=== PATIENT | male | born 1980 | race Caucasian/White ===

== ENCOUNTER 2022-02-11 23:56 | Inpatient (IN) | payer OTHER ==
[2022-02-12] MEDS ORDERED: Adacel Vial IM ONE ×2 (00:45→01:08)
[2022-02-12] MEDS ORDERED: VANCOMYCIN 1 GRAM/200 ML BAG 1 GM/200 ML PIGGYBACK IV ONE ×2 (00:46→02:18)
[2022-02-12] MEDS ORDERED: Sodium Chloride 0.9% 1000 ML 1,000 ML IV STA (00:47)
[2022-02-12] MEDS ORDERED: PIPERACILLIN/TAZOBACTAM 3.375 GM in Sodium Chloride 100ML MINI-BAG PLUS 100 ML IV ONE (00:47)
--- NOTE | 2022-02-12 00:54 | ERPHSYRPT ---
- History of Present Illness Time Seen by Provider: 02/12/22 00:49 Source: patient Physician History: Patient is a 41-year-old male presents to emergency department for evaluation of blisters to both feet. Patient is a type II diabetic. He has a history of a stroke. Patient states that he has been experiencing some sores in his feet. Patient's family members have been applying triamcinolone cream. Patient's feet shortly thereafter developed bilateral blisters. There is lymphangitis observed at the medial aspect of patient's right foot. There are open sores on the left foot. Patient's wounds have been progressive. No trauma. 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 Patient is prone to infections. Patient states his feet are insensate. Patient does not have a white lead grinder and does not follow white lead grinder regularly. at bedside. Patient has no systemic manifestations at this time. They deny fevers. They voiced no other complaints or concerns at this time. Portions of this note were created with voice recognition technology. There may be grammatical, spelling, punctuation or sound alike errors Timing/Duration: yesterday Severity: moderate Modifying Factors: Improves With: nothing Associated Symptoms: denies symptoms Allergies/Adverse Reactions: No Known Drug Allergies Allergy (Verified 02/12/22 00:36) - Review of Systems Constitutional: No Symptoms, No Fever, No Chills Eyes: No Symptoms Ears, Nose, & Throat: No Symptoms Respiratory: No Symptoms, No Cough, No Dyspnea Cardiac: No Symptoms, No Chest Pain, No Edema, No Syncope Abdominal/Gastrointestinal: No Symptoms, No Abdominal Pain, No Nausea, No Vomiting, No Diarrhea Genitourinary Symptoms: No Symptoms, No Dysuria Musculoskeletal: No Symptoms, No Back Pain, No Neck Pain Skin: No Symptoms, No Rash Neurological: No Symptoms, No Dizziness, No Focal Weakness, No Sensory Changes Psychological: No Symptoms Endocrine: No Symptoms Hematologic/Lymphatic: No Symptoms Immunological/Allergic: No Symptoms All Other Systems: Reviewed and Negative - Nursing Vital Signs Nursing Vital Signs: Initial Vital Signs Temperature 98.2 F 02/12/22 00:42 Pulse Rate 103 H 02/12/22 00:42 Respiratory Rate 18 02/12/22 00:42 Blood Pressure 163/101 02/12/22 00:42 O2 Sat by Pulse Oximetry 100 02/12/22 00:42 Pain Scale Pain Intensity 8 - Physical Exam General Appearance: no apparent distress, alert Eye Exam: PERRL/EOMI, eyes nml inspection Ears, Nose, Throat Exam: normal ENT inspection, TMs normal, pharynx normal, moist mucous membranes Neck Exam: normal inspection, non-tender, supple, full range of motion Respiratory Exam: normal breath sounds, lungs clear, airway intact, No respiratory distress Cardiovascular Exam: regular rate/rhythm, normal heart sounds, normal peripheral pulses Gastrointestinal/Abdomen Exam: soft, normal bowel sounds, No tenderness, No mass Back Exam: normal inspection, normal range of motion, No CVA tenderness, No vertebral tenderness Extremity Exam: normal inspection, normal range of motion, pelvis stable, swelling (Mild swelling both feet. Bilateral feet are neurovascular tact distally. Compartments are soft. Cap refill less than 2 seconds. No subc utaneous emphysema observed), other (Both feet present with multiple blisters and skin breakdown particularly in between the toes. The right foot presents with lymphangitis. There are open sores on the left foot.) Neurologic Exam: alert, oriented x 3, cooperative, normal mood/affect, nml cerebellar function, nml station & gait, sensation nml, No motor deficits Skin Exam: normal color, warm, dry, No rash Lymphatic Exam: No adenopathy SpO2 Interpretation: normal SpO2: 98 O2 Delivery: Room Air - Course Nursing assessment & vital signs reviewed: Yes Ordered Tests: Active Orders 24 hr Category Date Time Status IV Insertion STAT Care 02/12/22 00:47 Active Pulse Oximetry (ED) STAT Care 02/12/22 00:47 Active BLOOD CULTURE Stat Lab 02/12/22 01:05 Received CBC W DIFF Stat Lab 02/12/22 01:00 Completed CMP Stat Lab 02/12/22 01:00 Completed Lactic Acid Stat Lab 02/12/22 01:05 Completed PROCALCITONIN Stat Lab 02/12/22 01:00 Completed UA W/RFX CULTURE Stat Lab 02/12/22 Ordered Medication Summary Generic Name Dose Route Start Last Admin Trade Name Freq PRN Reason Stop Dose Admin Vancomycin HCl 1 gm in 200 mls @ 125 mls/hr 02/12/22 00:46 Vancomycin 1 Gram/200 Ml Bag IV 02/12/22 02:21 STAT ONE Discontinued Medications Generic Name Dose Route Start Last Admin Trade Name Freq PRN Reason Stop Dose Admin Diphtheria/Tetanus/Acell Pertussis 0.5 ml 02/12/22 00:45 02/12/22 01:18 Tdap --Diph,Pertuss(Acell),Tet Vac/Pf 0.5 Ml Vial IM 02/12/22 00:46 0.5 ml .ONCE ONE Administration Diphtheria/Tetanus/Acell Pertussis Confirm 02/12/22 01:08 Tdap --Diph,Pertuss(Acell),Tet Vac/Pf 0.5 Ml Vial Administered 02/12/22 01:09 Dose 0.5 ml IM .STK-MED ONE Piperacillin Sod/Tazobactam 100 mls @ 200 mls/hr 02/12/22 00:47 02/12/22 01:20 Sod 3.375 gm/ Sodium Chloride IV 02/12/22 01:16 200 mls/hr STAT ONE Administration Sodium Chloride 1,000 mls @ 999 mls/hr 02/12/22 00:47 02/12/22 01:19 Sodium Chloride 0.9% 1000 Ml IV 02/12/22 01:47 999 mls/hr .Q1H1M STA Administration Sodium Chloride Confirm 02/12/22 01:08 Sodium Chloride 0.9% 1000 Ml Administered 02/12/22 01:09 Dose 1,000 mls @ ud .ROUTE .STK-MED ONE Sodium Chloride Confirm 02/12/22 01:10 Sodium Chloride 100ml Mini-Bag Plus Administered 02/12/22 01:11 Dose 100 mls @ ud IV .STK-MED ONE Morphine Sulfate 4 mg 02/12/22 02:12 Morphine Sulfate 4 Mg/Ml Injection IV 02/12/22 02:13 STAT ONE Piperacillin Sod/Tazobactam Sod Confirm 02/12/22 01:08 Piperacillin/Tazobactam Sodium 3.375 Gm Vial Administered 02/12/22 01:09 Dose 3.375 gm IV .STK-MED ONE Lab/Rad Data: Laboratory Result Diagrams 02/12/22 01:00 02/12/22 01:00 Laboratory Results 02/12/22 02/12/22 02/12/22 Range/Units 01:08 01:05 01:00 WBC (4.0-10.5) x10^3/uL RBC (4.1-5.6) x10^6/uL Hgb (12.5-18.0) g/dL Hct (42-50) % MCV (78-100) fL MCH (26-32) pg MCHC (32-36) g/dL RDW (11.5-14.0) % Plt Count (150-450) x10^3/uL MPV (7.5-11.0) fL Gran % (36.0-66.0) % Immature Gran % (Auto) (0.00-0.4) % Nucleat RBC Rel Count (0.00-0.1) % Eos # (Auto) (0-0.5) x10^3/uL Immature Gran # (Auto) (0.00-0.03) x10^3u/L Absolute Lymphs (auto) (1.0-4.6) x10^3/uL Absolute Monos (auto) (0.0-1.3) x10^3/uL Absolute Nucleated RBC (0.00-0.01) x10^3u/L Lymphocytes % (24.0-44.0) % Monocytes % (0.0-12.0) % Eosinophils % (0.00-5.0) % Basophils % (0.0-0.4) % Absolute Granulocytes (1.4-6.9) x10^3/uL Basophils # (0-0.4) x10^3/uL Sodium (137-145) mmol/L Potassium (3.5-5.1) mmol/L Chloride (98-107) mmol/L Carbon Dioxide (22-30) mmol/L Anion Gap (5-15) MEQ/L BUN (9-20) mg/dL Creatinine (0.66-1.25) mg/dL Estimated GFR ML/MIN Glucose (74-106) mg/dL Lactic Acid 3.1 H (0.4-2.0) Calcium (8.4-10.2) mg/dL Total Bilirubin (0.2-1.3) mg/dL AST (17-59) U/L ALT (0-50) U/L Alkaline Phosphatase (38-126) U/L Serum Total Protein (6.3-8.2) g/dL Albumin (3.5-5.0) g/dL Procalcitonin 0.051 (0.030-0.080) ng/mL Influenza Type A Ag NEGATIVE (NEGATIVE) Influenza Type B Ag NEGATIVE (NEGATIVE) RSV (PCR) NEGATIVE (Negative) SARS-CoV-2 (PCR) NEGATIVE (NEGATIVE) 02/12/22 02/12/22 Range/Units 01:00 01:00 WBC 8.4 (4.0-10.5) x10^3/uL RBC 5.58 (4.1-5.6) x10^6/uL Hgb 16.1 (12.5-18.0) g/dL Hct 48.5 (42-50) % MCV 86.9 (78-100) fL MCH 28.9 (26-32) pg MCHC 33.2 (32-36) g/dL RDW 12.5 (11.5-14.0) % Plt Count 234 (150-450) x10^3/uL MPV 10.3 (7.5-11.0) fL Gran % 62.5 (36.0-66.0) % Immature Gran % (Auto) 0.4 (0.00-0.4) % Nucleat RBC Rel Count 0.0 (0.00-0.1) % Eos # (Auto) 0.08 (0-0.5) x10^3/uL Immature Gran # (Auto) 0.03 (0.00-0.03) x10^3u/L Absolute Lymphs (auto) 2.32 (1.0-4.6) x10^3/uL Absolute Monos (auto) 0.68 (0.0-1.3) x10^3/uL Absolute Nucleated RBC 0.00 (0.00-0.01) x10^3u/L Lymphocytes % 27.6 (24.0-44.0) % Monocytes % 8.1 (0.0-12.0) % Eosinophils % 1.0 (0.00-5.0) % Basophils % 0.4 (0.0-0.4) % Absolute Granulocytes 5.28 (1.4-6.9) x10^3/uL Basophils # 0.03 (0-0.4) x10^3/uL Sodium 138 (137-145) mmol/L Potassium 4.5 (3.5-5.1) mmol/L Chloride 102 (98-107) mmol/L Carbon Dioxide 24 (22-30) mmol/L Anion Gap 16.2 H (5-15) MEQ/L BUN 18 (9-20) mg/dL Creatinine 0.77 (0.66-1.25) mg/dL Estimated GFR > 60.0 ML/MIN Glucose 307 H (74-106) mg/dL Lactic Acid (0.4-2.0) Calcium 9.4 (8.4-10.2) mg/dL Total Bilirubin 0.80 (0.2-1.3) mg/dL AST 29 (17-59) U/L ALT 39 (0-50) U/L Alkaline Phosphatase 125 (38-126) U/L Serum Total Protein 8.1 (6.3-8.2) g/dL Albumin 4.7 (3.5-5.0) g/dL Procalcitonin (0.030-0.080) ng/mL Influenza Type A Ag (NEGATIVE) Influenza Type B Ag (NEGATIVE) RSV (PCR) (Negative) SARS-CoV-2 (PCR) (NEGATIVE) - Progress Progress: improved Progress Note: Patient reassessed. Patient received morphine for bilateral foot pain. Vanco and Zosyn infused for infection. Patient's tetanus needed updated. Adacel administered. IV fluids infused. Patient hyperglycemic with a slight elevated anion gap. Lactic acidosis of 3.1. We will have to trend his lactic acidosis. Patient will be admitted. He will likely be evaluated by her white lead grinder for further evaluation and possible debridement of patient's foot wounds. Plan of care discussed with patient. He agrees to admission [facility] for further evaluation and treatment. COVID-negative. Case discussed with Dr. Sidhu who accepts admission to observation. Portions of this note were created with voice recognition technology. There may be grammatical, spelling, punctuation or sound alike errors 02/12/22 02:17 Discussed with : John Will see patient in: hospital (observation) Counseled pt/family regarding: lab results, diagnosis, rad results - Departure Departure Disposition: Observation Clinical Impression: Cellulitis of foot, Lymphangitis, Lactic acidosis, Hyperglycemia Condition: Stable Critical Care Time: No Referrals: SUNITA PATTERSON [Primary Care Provider] - Follow up/PCP as directed
[2022-02-12] MEDS ORDERED: Sodium Chloride 0.9% 1000 ML 1,000 ML ONE (01:08)
[2022-02-12] MEDS ORDERED: PIPERACILLIN/TAZOBACTAM IV ONE ×2 (01:08→05:20)
[2022-02-12] MEDS ORDERED: Sodium Chloride 100ML MINI-BAG PLUS 100 ML IV ONE ×2 (01:10→05:20)
[2022-02-12 01:21] LABS: Absolute Neutrophil Ct (ANC) 5.28 x10^3/uL (1.4-6.9); Basophil (Absolute #) 0.03 x10^3/uL (0-0.4); Eosinophil (Absolute #) 0.08 x10^3/uL (0-0.5); Hematocrit 48.5 % (42-50); Hemoglobin 16.1 g/dL (12.5-18.0); Lymphocyte (Absolute #) 2.32 x10^3/uL (1.0-4.6); Lymphocytes % 27.6 % (24.0-44.0); Mean Cell Volume 86.9 fL (78-100); Mean Corpuscular Hemoglobin 28.9 pg (26-32); Mean Corpuscular Hgb Concent. 33.2 g/dL (32-36); Mean Platelet Volume 10.3 fL (7.5-11.0); Monocyte (Absolute #) 0.68 x10^3/uL (0.0-1.3); Monocytes % 8.1 % (0.0-12.0); Neutrophil % 62.5 % (36.0-66.0); Platelet Count 234 x10^3/uL (150-450); Red Blood Count 5.58 x10^6/uL (4.1-5.6); Red Cell Distribution Width 12.5 % (11.5-14.0); White Blood Count 8.4 x10^3/uL (4.0-10.5)
[2022-02-12 01:26] LABS: ALBUMIN 4.7 g/dL (3.5-5.0); ALKALINE PHOSPHATASE 125 U/L (38-126); ANION GAP 16.2 MEQ/L (5-15); BLOOD UREA NITROGEN 18 mg/dL (9-20); CHLORIDE 102 mmol/L (98-107); Calcium 9.4 mg/dL (8.4-10.2); Carbon Dioxide 24 mmol/L (22-30); Creatinine 1 0.77 mg/dL (0.66-1.25); EST GLOMERULAR FILTRATION RATE > 60.0 ML/MIN; Glucose 307 mg/dL (74-106); Potassium 4.5 mmol/L (3.5-5.1); SGOT/AST 29 U/L (17-59); SGPT/ALT 39 U/L (0-50); SODIUM 138 mmol/L (137-145); Total Protein 8.1 g/dL (6.3-8.2)
[2022-02-12 01:47] LABS: INFLUENZA A NEGATIVE (NEGATIVE); INFLUENZA B NEGATIVE (NEGATIVE); RESPIRATORY SYNCTIAL VIRUS NEGATIVE (Negative); SARS-CoV-2 Xpert Express NEGATIVE (NEGATIVE)
[2022-02-12] MEDS ORDERED: MORPHINE SULFATE 4 MG INJ IV ONE (02:12)
[2022-02-12] MEDS ORDERED: MORPHINE SULFATE 4 MG INJ ONE (02:18)
[2022-02-12] MEDS ORDERED: TYLENOL 325 MG PO PRN (03:15)
[2022-02-12] MEDS ORDERED: VANCOMYCIN 1 GRAM/200 ML BAG 1 GM/200 ML PIGGYBACK IV SCH (03:15)
[2022-02-12 03:57] LABS: Absolute Neutrophil Ct (ANC) 5.22 x10^3/uL (1.4-6.9); Basophil (Absolute #) 0.02 x10^3/uL (0-0.4); Eosinophil (Absolute #) 0.08 x10^3/uL (0-0.5); Hematocrit 44.7 % (42-50); Hemoglobin 14.7 g/dL (12.5-18.0); Lymphocyte (Absolute #) 2.34 x10^3/uL (1.0-4.6); Lymphocytes % 28.5 % (24.0-44.0); Mean Cell Volume 87.1 fL (78-100); Mean Corpuscular Hemoglobin 28.7 pg (26-32); Mean Corpuscular Hgb Concent. 32.9 g/dL (32-36); Mean Platelet Volume 10.2 fL (7.5-11.0); Monocyte (Absolute #) 0.52 x10^3/uL (0.0-1.3); Monocytes % 6.3 % (0.0-12.0); Neutrophil % 63.6 % (36.0-66.0); Platelet Count 215 x10^3/uL (150-450); Red Blood Count 5.13 x10^6/uL (4.1-5.6); Red Cell Distribution Width 12.7 % (11.5-14.0); White Blood Count 8.2 x10^3/uL (4.0-10.5)
[2022-02-12 04:10] LABS: Appearance CLEAR (CLEAR); Bacteria RARE /HPF (NEGATIVE); Glucose >=1000 mg/dL (NEGATIVE)
[2022-02-12 04:11] LABS: Bilirubin NEGATIVE (NEGATIVE); Dipstick done @ ? MAIN LAB; Ketones TRACE (NEGATIVE); Nitrite NEGATIVE (NEGATIVE); Protein,Urine Dip NEGATIVE (Negative); RBC NEGATIVE Ery/ul (0-5); Urine Cultured Indicated? NO; Urobilinogen 0.2 mg/dL (0-1)
[2022-02-12 04:14] LABS: ALBUMIN 4.1 g/dL (3.5-5.0); ALKALINE PHOSPHATASE 108 U/L (38-126); ANION GAP 14.1 MEQ/L (5-15); BLOOD UREA NITROGEN 18 mg/dL (9-20); CHLORIDE 104 mmol/L (98-107); Calcium 8.7 mg/dL (8.4-10.2); Carbon Dioxide 24 mmol/L (22-30); Creatinine 1 0.82 mg/dL (0.66-1.25); EST GLOMERULAR FILTRATION RATE > 60.0 ML/MIN; Glucose 289 mg/dL (74-106); Potassium 4.3 mmol/L (3.5-5.1); SGOT/AST 28 U/L (17-59); SGPT/ALT 35 U/L (0-50); SODIUM 138 mmol/L (137-145); Total Protein 7.2 g/dL (6.3-8.2)
[2022-02-12] MEDS: PIPERACILLIN/TAZOBACTAM 3.375 GM in Sodium Chloride 100ML MINI-BAG PLUS 100 ML IV SCH ×4 (05:52→23:16)
[2022-02-12] MEDS: MORPHINE SULFATE 4 MG INJ IV PRN ×2 (06:35→12:35)
--- NOTE | 2022-02-12 11:25 | XRAY ---
Exam: Duplex Doppler Ultrasound of the bilateral lower extremities. Comparison: [None.] Indication: 41-year-old male with bilateral cellulitis. Findings: The examination of the right and left lower extremity was carried out in the usual manner imaging equal opportunity representative sections of the common femoral vein through the popliteal vein. The posterior tibial veins were also evaluated. Normal color blood flow was seen throughout. Normal spontaneous and phasic flow was seen at all equal opportunity representative deep vein segments. There was normal transducer compression and doppler signal augmentation at all levels. The greater saphenous vein demonstrated color blood flow, Doppler signal, and compressibility within the proximal right and left thighs. Impression: 1. No evidence of deep venous thrombosis within the right or left lower extremity. No evidence of superficial venous thrombosis was seen as well.
[2022-02-12] MEDS: VANCOMYCIN 1.5 GRAM/300 ML BAG 1.5 GM/300 ML PIGGYBACK IV SCH ×2 (12:39→20:45)
--- NOTE | 2022-02-12 12:44 | PCM.HP ---
History of Present Illness - Chief Complaint Chief Complaint: Diabetic, foot cellulitis, lymphangitis History of Present Illness: is a 41 year old male pt of Dr. Chandra with DM II, peripheral neuropathy, and hx [place] and CVA who was admitted through ER with diabetic foot wounds. He started noticing sharp pains in the feet and blistering 2 days ago. No trauma. The blisters escalated quickly. Otherwise, he felt fine, no fever, no vomiting. He has been receiving morphine 4mg IV q 4h. Is tolerating po fine. Feeling overall well today, aside from fatigue and pain in the feet. - Review of Systems Constitutional: Fatigue Abdominal/Gastrointestinal: Abdominal Pain (had cramps this a.m. but they resolved.) Skin: Cellulitis, Skin Lesions Psychological: No Suicidal Ideations All Other Systems: Reviewed and Negative Medications & Allergies Allergies/Adverse Reactions: Allergies Allergy/AdvReac Type Severity Reaction Status Date / Time No Known Drug Allergies Allergy Verified 02/12/22 03:20 - Past Medical History Past Medical History: Yes Neurological History: Stroke ENT History: No Pertinent History Cardiac History: High Cholesterol, Hypertension, Myocardial Infarction ([place]) Respiratory History: No Pertinent History Endocrine Medical History: Diabetes Type II Musculoskelatal History: No Pertinent History GI Medical History: No Pertinent History History: No Pertinent History Pyscho-Social History: No Pertinent History Male Reproductive Disorders: No Pertinent History - Past Surgical History Past Surgical History: Yes Neuro Surgical History: No Pertinent History Cardiac History: No Pertinent History Respiratory Surgery: No Pertinent History GI Surgical History: No Pertinent History Genitourinary Surgical Hx: No Pertinent History Musculskeletal Surgical Hx: No Pertinent History Male Surgical History: Testicular Surgery Other Surgical History: hernia x2 - Social History Smoking Status: Former smoker Exposure to second hand smoke: Yes Alcohol: None Drug Use: none - Physical Exam Vital Signs: Vital Signs - 24 hr Temp Pulse Resp BP Pulse Ox 02/12/22 11:38 97.3 F 88 16 144/80 96 02/12/22 07:31 97.8 F 78 18 137/83 96 02/12/22 03:26 97.5 F 83 20 166/92 100 02/12/22 02:50 86 18 120/84 98 02/12/22 02:19 98 02/12/22 01:29 98 02/12/22 01:27 102 H 18 143/105 99 02/12/22 00:42 98.2 F 103 H 18 163/101 100 General Appearance: no apparent distress, alert, obese Neurologic Exam: oriented x 3, cooperative Eye Exam: eyes nml inspection Ears, Nose, Throat Exam: moist mucous membranes Neck Exam: normal inspection Respiratory Exam: normal breath sounds, lungs clear, No crackles/rales, No rhonchi, No wheezing Cardiovascular Exam: regular rate/rhythm, normal heart sounds, No murmur Gastrointestinal/Abdomen Exam: soft, normal bowel sounds, No tenderness, No distention, No mass, No guarding, No rebound Extremity Exam: other (distal feet bilat have been washed with iodine. The toes are edematous, L>R, with some purple discoloration. Pedal pulses +, L>R. Evidence of deflated vesicles present L>R.) Results - Labs Lab/Micro Results: Lab Results-Last 24 Hours 02/12/22 02/12/22 02/12/22 Range/Units 01:00 01:00 01:00 WBC 8.4 (4.0-10.5) x10^3/uL RBC 5.58 (4.1-5.6) x10^6/uL Hgb 16.1 (12.5-18.0) g/dL Hct 48.5 (42-50) % MCV 86.9 (78-100) fL MCH 28.9 (26-32) pg MCHC 33.2 (32-36) g/dL RDW 12.5 (11.5-14.0) % Plt Count 234 (150-450) x10^3/uL MPV 10.3 (7.5-11.0) fL Gran % 62.5 (36.0-66.0) % Immature Gran % (Auto) 0.4 (0.00-0.4) % Nucleat RBC Rel Count 0.0 (0.00-0.1) % Eos # (Auto) 0.08 (0-0.5) x10^3/uL Immature Gran # (Auto) 0.03 (0.00-0.03) x10^3u/L Absolute Lymphs (auto) 2.32 (1.0-4.6) x10^3/uL Absolute Monos (auto) 0.68 (0.0-1.3) x10^3/uL Absolute Nucleated RBC 0.00 (0.00-0.01) x10^3u/L Lymphocytes % 27.6 (24.0-44.0) % Monocytes % 8.1 (0.0-12.0) % Eosinophils % 1.0 (0.00-5.0) % Basophils % 0.4 (0.0-0.4) % Absolute Granulocytes 5.28 (1.4-6.9) x10^3/uL Basophils # 0.03 (0-0.4) x10^3/uL Sodium 138 (137-145) mmol/L Potassium 4.5 (3.5-5.1) mmol/L Chloride 102 (98-107) mmol/L Carbon Dioxide 24 (22-30) mmol/L Anion Gap 16.2 H (5-15) MEQ/L BUN 18 (9-20) mg/dL Creatinine 0.77 (0.66-1.25) mg/dL Estimated GFR > 60.0 ML/MIN Glucose 307 H (74-106) mg/dL POC Glucometer (74 to 106) mg/dL Lactic Acid (0.4-2.0) Calcium 9.4 (8.4-10.2) mg/dL Total Bilirubin 0.80 (0.2-1.3) mg/dL AST 29 (17-59) U/L ALT 39 (0-50) U/L Alkaline Phosphatase 125 (38-126) U/L Serum Total Protein 8.1 (6.3-8.2) g/dL Albumin 4.7 (3.5-5.0) g/dL Procalcitonin 0.051 (0.030-0.080) ng/mL Urinalys Dipstick Clnc Urine Color (YELLOW) Urine Appearance (CLEAR) Urine pH (5-6) Ur Specific Clayton (1.005-1.025) POC Urine Protein Conf (Negative) Urine Ketones (NEGATIVE) Urine Nitrite (NEGATIVE) Urine Bilirubin (NEGATIVE) Urine Urobilinogen (0-1) mg/dL Urine Leukocytes (NEGATIVE) Urine WBC (Auto) (0-5) /HPF Urine RBC (Auto) (0-2) /HPF U Epithel Cells (Auto) (FEW) /HPF Urine Bacteria (Auto) (NEGATIVE) /HPF Urine RBC (0-5) Nick/ul Ur Culture Indicated? Urine Glucose (NEGATIVE) mg/dL Influenza Type A Ag (NEGATIVE) Influenza Type B Ag (NEGATIVE) RSV (PCR) (Negative) SARS-CoV-2 (PCR) (NEGATIVE) 02/12/22 02/12/22 02/12/22 Range/Units 01:05 01:08 03:14 WBC (4.0-10.5) x10^3/uL RBC (4.1-5.6) x10^6/uL Hgb (12.5-18.0) g/dL Hct (42-50) % MCV (78-100) fL MCH (26-32) pg MCHC (32-36) g/dL RDW (11.5-14.0) % Plt Count (150-450) x10^3/uL MPV (7.5-11.0) fL Gran % (36.0-66.0) % Immature Gran % (Auto) (0.00-0.4) % Nucleat RBC Rel Count (0.00-0.1) % Eos # (Auto) (0-0.5) x10^3/uL Immature Gran # (Auto) (0.00-0.03) x10^3u/L Absolute Lymphs (auto) (1.0-4.6) x10^3/uL Absolute Monos (auto) (0.0-1.3) x10^3/uL Absolute Nucleated RBC (0.00-0.01) x10^3u/L Lymphocytes % (24.0-44.0) % Monocytes % (0.0-12.0) % Eosinophils % (0.00-5.0) % Basophils % (0.0-0.4) % Absolute Granulocytes (1.4-6.9) x10^3/uL Basophils # (0-0.4) x10^3/uL Sodium (137-145) mmol/L Potassium (3.5-5.1) mmol/L Chloride (98-107) mmol/L Carbon Dioxide (22-30) mmol/L Anion Gap (5-15) MEQ/L BUN (9-20) mg/dL Creatinine (0.66-1.25) mg/dL Estimated GFR ML/MIN Glucose (74-106) mg/dL POC Glucometer (74 to 106) mg/dL Lactic Acid 3.1 H 2.7 H (0.4-2.0) Calcium (8.4-10.2) mg/dL Total Bilirubin (0.2-1.3) mg/dL AST (17-59) U/L ALT (0-50) U/L Alkaline Phosphatase (38-126) U/L Serum Total Protein (6.3-8.2) g/dL Albumin (3.5-5.0) g/dL Procalcitonin (0.030-0.080) ng/mL Urinalys Dipstick Clnc Urine Color (YELLOW) Urine Appearance (CLEAR) Urine pH (5-6) Ur Specific [place] (1.005-1.025) POC Urine Protein Conf (Negative) Urine Ketones (NEGATIVE) Urine Nitrite (NEGATIVE) Urine Bilirubin (NEGATIVE) Urine Urobilinogen (0-1) mg/dL Urine Leukocytes (NEGATIVE) Urine WBC (Auto) (0-5) /HPF Urine RBC (Auto) (0-2) /HPF U Epithel Cells (Auto) (FEW) /HPF Urine Bacteria (Auto) (NEGATIVE) /HPF Urine RBC (0-5) Nick/ul Ur Culture Indicated? Urine Glucose (NEGATIVE) mg/dL Influenza Type A Ag NEGATIVE (NEGATIVE) Influenza Type B Ag NEGATIVE (NEGATIVE) RSV (PCR) NEGATIVE (Negative) SARS-CoV-2 (PCR) NEGATIVE (NEGATIVE) 02/12/22 02/12/22 02/12/22 Range/Units 03:53 03:53 03:59 WBC 8.2 (4.0-10.5) x10^3/uL RBC 5.13 (4.1-5.6) x10^6/uL Hgb 14.7 (12.5-18.0) g/dL Hct 44.7 (42-50) % MCV 87.1 (78-100) fL MCH 28.7 (26-32) pg MCHC 32.9 (32-36) g/dL RDW 12.7 (11.5-14.0) % Plt Count 215 (150-450) x10^3/uL MPV 10.2 (7.5-11.0) fL Gran % 63.6 (36.0-66.0) % Immature Gran % (Auto) 0.4 (0.00-0.4) % Nucleat RBC Rel Count 0.0 (0.00-0.1) % Eos # (Auto) 0.08 (0-0.5) x10^3/uL Immature Gran # (Auto) 0.03 (0.00-0.03) x10^3u/L Absolute Lymphs (auto) 2.34 (1.0-4.6) x10^3/uL Absolute Monos (auto) 0.52 (0.0-1.3) x10^3/uL Absolute Nucleated RBC 0.00 (0.00-0.01) x10^3u/L Lymphocytes % 28.5 (24.0-44.0) % Monocytes % 6.3 (0.0-12.0) % Eosinophils % 1.0 (0.00-5.0) % Basophils % 0.2 (0.0-0.4) % Absolute Granulocytes 5.22 (1.4-6.9) x10^3/uL Basophils # 0.02 (0-0.4) x10^3/uL Sodium 138 (137-145) mmol/L Potassium 4.3 (3.5-5.1) mmol/L Chloride 104 (98-107) mmol/L Carbon Dioxide 24 (22-30) mmol/L Anion Gap 14.1 (5-15) MEQ/L BUN 18 (9-20) mg/dL Creatinine 0.82 (0.66-1.25) mg/dL Estimated GFR > 60.0 ML/MIN Glucose 289 H (74-106) mg/dL POC Glucometer 255 H (74 to 106) mg/dL Lactic Acid (0.4-2.0) Calcium 8.7 (8.4-10.2) mg/dL Total Bilirubin 0.70 (0.2-1.3) mg/dL AST 28 (17-59) U/L ALT 35 (0-50) U/L Alkaline Phosphatase 108 (38-126) U/L Serum Total Protein 7.2 (6.3-8.2) g/dL Albumin 4.1 (3.5-5.0) g/dL Procalcitonin (0.030-0.080) ng/mL Urinalys Dipstick Clnc Urine Color (YELLOW) Urine Appearance (CLEAR) Urine pH (5-6) Ur Specific [place] (1.005-1.025) POC Urine Protein Conf (Negative) Urine Ketones (NEGATIVE) Urine Nitrite (NEGATIVE) Urine Bilirubin (NEGATIVE) Urine Urobilinogen (0-1) mg/dL Urine Leukocytes (NEGATIVE) Urine WBC (Auto) (0-5) /HPF Urine RBC (Auto) (0-2) /HPF U Epithel Cells (Auto) (FEW) /HPF Urine Bacteria (Auto) (NEGATIVE) /HPF Urine RBC (0-5) Nick/ul Ur Culture Indicated? Urine Glucose (NEGATIVE) mg/dL Influenza Type A Ag (NEGATIVE) Influenza Type B Ag (NEGATIVE) RSV (PCR) (Negative) SARS-CoV-2 (PCR) (NEGATIVE) 02/12/22 02/12/22 02/12/22 Range/Units 07:15 10:59 Unknown WBC (4.0-10.5) x10^3/uL RBC (4.1-5.6) x10^6/uL Hgb (12.5-18.0) g/dL Hct (42-50) % MCV (78-100) fL MCH (26-32) pg MCHC (32-36) g/dL RDW (11.5-14.0) % Plt Count (150-450) x10^3/uL MPV (7.5-11.0) fL Gran % (36.0-66.0) % Immature Gran % (Auto) (0.00-0.4) % Nucleat RBC Rel Count (0.00-0.1) % Eos # (Auto) (0-0.5) x10^3/uL Immature Gran # (Auto) (0.00-0.03) x10^3u/L Absolute Lymphs (auto) (1.0-4.6) x10^3/uL Absolute Monos (auto) (0.0-1.3) x10^3/uL Absolute Nucleated RBC (0.00-0.01) x10^3u/L Lymphocytes % (24.0-44.0) % Monocytes % (0.0-12.0) % Eosinophils % (0.00-5.0) % Basophils % (0.0-0.4) % Absolute Granulocytes (1.4-6.9) x10^3/uL Basophils # (0-0.4) x10^3/uL Sodium (137-145) mmol/L Potassium (3.5-5.1) mmol/L Chloride (98-107) mmol/L Carbon Dioxide (22-30) mmol/L Anion Gap (5-15) MEQ/L BUN (9-20) mg/dL Creatinine (0.66-1.25) mg/dL Estimated GFR ML/MIN Glucose (74-106) mg/dL POC Glucometer 218 H 310 H (74 to 106) mg/dL Lactic Acid (0.4-2.0) Calcium (8.4-10.2) mg/dL Total Bilirubin (0.2-1.3) mg/dL AST (17-59) U/L ALT (0-50) U/L Alkaline Phosphatase (38-126) U/L Serum Total Protein (6.3-8.2) g/dL Albumin (3.5-5.0) g/dL Procalcitonin (0.030-0.080) ng/mL Urinalys Dipstick Clnc MAIN LAB Urine Color YELLOW (YELLOW) Urine Appearance CLEAR (CLEAR) Urine pH 5.0 (5-6) Ur Specific [place] 1.020 (1.005-1.025) POC Urine Protein Conf NEGATIVE (Negative) Urine Ketones TRACE A (NEGATIVE) Urine Nitrite NEGATIVE (NEGATIVE) Urine Bilirubin NEGATIVE (NEGATIVE) Urine Urobilinogen 0.2 (0-1) mg/dL Urine Leukocytes NEGATIVE (NEGATIVE) Urine WBC (Auto) NONE (0-5) /HPF Urine RBC (Auto) NONE (0-2) /HPF U Epithel Cells (Auto) NONE (FEW) /HPF Urine Bacteria (Auto) RARE (NEGATIVE) /HPF Urine RBC NEGATIVE (0-5) Nick/ul Ur Culture Indicated? NO Urine Glucose >=1000 A (NEGATIVE) mg/dL Influenza Type A Ag (NEGATIVE) Influenza Type B Ag (NEGATIVE) RSV (PCR) (Negative) SARS-CoV-2 (PCR) (NEGATIVE) Accuchecks Date 02/12/22 Date 02/12/22 Time 11:38 Time 07:31 - Radiology Impressions Radiology Exams & Impressions: Radiology Procedures Category Date Time Status VENOUS BILATERAL EXTREMITY [US] Routine Exams 02/12/22 09:00 Completed Assessment/Plan (1) Cellulitis of foot Current Visit: Yes Status: Acute Assessment & Plan: Dr. Cook saw pt and deflated vesicles, sounds like he took cultures as well, thank you. Pt is on zosyn currently. Will add percocet po in addition to morphine. Code(s): L03.119 - CELLULITIS OF UNSPECIFIED PART OF LIMB (2) Diabetes mellitus type II, uncontrolled Current Visit: Yes Status: Chronic Qualifiers: Glycemic state: with hyperglycemia Qualified Code(s): E11.65 - Type 2 diabetes mellitus with hyperglycemia Code(s): [id number] - (3) Peripheral neuropathy Current Visit: Yes Status: Chronic Qualifiers: Peripheral neuropathy type: polyneuropathy associated with underlying disease Qualified Code(s): G63 - Polyneuropathy in diseases classified elsewhere Code(s): G62.9 - POLYNEUROPATHY, UNSPECIFIED
[2022-02-12] MEDS: OXYCODONE-ACETAMINOPHEN 10-325 PO PRN ×2 (13:05→17:41)
--- NOTE | 2022-02-12 16:41 | PCM.CONS ---
Podiatry HPI - Consult Date of Consultation Date: 02/12/22 Reason for Consult: Bullous epidermal lysis, multiple diabetic foot ulcers Consulting Provider: SHMUEL BEDOLLA DPM - [facility] History of Present Illness: Davidson is a very pleasant 41-year-old male who is seen at bedside today for bullous blisters to the bilateral lower extremity as well as ulcerations to the left foot over digits 3 4 and 5. Patient indicates that he does not know how this occurred. He has been a diabetic since he has been 23 years old type II and uncontrolled. He indicates he does have a significant amount of neuropathy that causes his feet to be cold so he constantly wears socks at all times. He currently denies any constitutional symptoms of infection. He denies any other pedal complaints at this time Medications & Allergies Home Medications: Home Medication List No Reportable Medications [No Reported Medications] 02/12/22 [History Confirmed 02/12/22] Allergies/Adverse Reactions: Allergies Allergy/AdvReac Type Severity Reaction Status Date / Time No Known Drug Allergies Allergy Verified 02/12/22 03:20 - Past Medical History Past Medical History: Yes Neurological History: Stroke ENT History: No Pertinent History Cardiac History: High Cholesterol, Hypertension, Myocardial Infarction (SD) Respiratory History: No Pertinent History Endocrine Medical History: Diabetes Type II Musculoskelatal History: No Pertinent History GI Medical History: No Pertinent History History: No Pertinent History Pyscho-Social History: No Pertinent History Male Reproductive Disorders: No Pertinent History - Past Surgical History Past Surgical History: Yes Neuro Surgical History: No Pertinent History Cardiac History: No Pertinent History Respiratory Surgery: No Pertinent History GI Surgical History: No Pertinent History Genitourinary Surgical Hx: No Pertinent History Musculskeletal Surgical Hx: No Pertinent History Male Surgical History: Testicular Surgery Other Surgical History: hernia x2 - Social History Smoking Status: Former smoker Exposure to second hand smoke: Yes Alcohol: None Drug Use: none Physical Exam - General General Appearance: no apparent distress - Neuro Neurologic: Epicritic and protopathic (absent) - Vascular Peripheral Pulses: Posterior tibialis: 2+, Dorsalis-Pedis: 2+ Capillary Refill Time: < 3 seconds Hair Growth: Symmetrical and Bilateral Varicosities: Positive Edema: Pitting Edema Degree: 2+ Skin: Supple, not atrophic Skin Temperature: Warm to touch - Muscular Muscle Strength: 5/5 on all 4 quadrants Digital Deformity: no digital deformities - Narrative Narrative Physical Exam: Podiatry Physical Exam Multiple bullous blisters to the bilateral lower extremity hemorrhagic to the left third digit otherwise serous in nature. Streaking to the inner aspect of the right posterior tibial tendon sheath with erythema correlating with bullous blisters in this area. 3 ulcerations noted over the third fourth and fifth digits of the left foot. See images. Nontender. Fibrotic and granulation tissue mixture. No obvious indications of infection other than cellulitis and streaking Results - Labs Lab/Micro Results: Lab Results-Last 24 Hours 02/12/22 02/12/22 02/12/22 Range/Units 01:00 01:00 01:00 WBC 8.4 (4.0-10.5) x10^3/uL RBC 5.58 (4.1-5.6) x10^6/uL Hgb 16.1 (12.5-18.0) g/dL Hct 48.5 (42-50) % MCV 86.9 (78-100) fL MCH 28.9 (26-32) pg MCHC 33.2 (32-36) g/dL RDW 12.5 (11.5-14.0) % Plt Count 234 (150-450) x10^3/uL MPV 10.3 (7.5-11.0) fL Gran % 62.5 (36.0-66.0) % Immature Gran % (Auto) 0.4 (0.00-0.4) % Nucleat RBC Rel Count 0.0 (0.00-0.1) % Eos # (Auto) 0.08 (0-0.5) x10^3/uL Immature Gran # (Auto) 0.03 (0.00-0.03) x10^3u/L Absolute Lymphs (auto) 2.32 (1.0-4.6) x10^3/uL Absolute Monos (auto) 0.68 (0.0-1.3) x10^3/uL Absolute Nucleated RBC 0.00 (0.00-0.01) x10^3u/L Lymphocytes % 27.6 (24.0-44.0) % Monocytes % 8.1 (0.0-12.0) % Eosinophils % 1.0 (0.00-5.0) % Basophils % 0.4 (0.0-0.4) % Absolute Granulocytes 5.28 (1.4-6.9) x10^3/uL Basophils # 0.03 (0-0.4) x10^3/uL Sodium 138 (137-145) mmol/L Potassium 4.5 (3.5-5.1) mmol/L Chloride 102 (98-107) mmol/L Carbon Dioxide 24 (22-30) mmol/L Anion Gap 16.2 H (5-15) MEQ/L BUN 18 (9-20) mg/dL Creatinine 0.77 (0.66-1.25) mg/dL Estimated GFR > 60.0 ML/MIN Glucose 307 H (74-106) mg/dL POC Glucometer (74 to 106) mg/dL Lactic Acid (0.4-2.0) Calcium 9.4 (8.4-10.2) mg/dL Total Bilirubin 0.80 (0.2-1.3) mg/dL AST 29 (17-59) U/L ALT 39 (0-50) U/L Alkaline Phosphatase 125 (38-126) U/L Serum Total Protein 8.1 (6.3-8.2) g/dL Albumin 4.7 (3.5-5.0) g/dL Procalcitonin 0.051 (0.030-0.080) ng/mL Urinalys Dipstick Clnc Urine Color (YELLOW) Urine Appearance (CLEAR) Urine pH (5-6) Ur Specific Monroe (1.005-1.025) POC Urine Protein Conf (Negative) Urine Ketones (NEGATIVE) Urine Nitrite (NEGATIVE) Urine Bilirubin (NEGATIVE) Urine Urobilinogen (0-1) mg/dL Urine Leukocytes (NEGATIVE) Urine WBC (Auto) (0-5) /HPF Urine RBC (Auto) (0-2) /HPF U Epithel Cells (Auto) (FEW) /HPF Urine Bacteria (Auto) (NEGATIVE) /HPF Urine RBC (0-5) Nick/ul Ur Culture Indicated? Urine Glucose (NEGATIVE) mg/dL Influenza Type A Ag (NEGATIVE) Influenza Type B Ag (NEGATIVE) RSV (PCR) (Negative) SARS-CoV-2 (PCR) (NEGATIVE) 02/12/22 02/12/22 02/12/22 Range/Units 01:05 01:08 03:14 WBC (4.0-10.5) x10^3/uL RBC (4.1-5.6) x10^6/uL Hgb (12.5-18.0) g/dL Hct (42-50) % MCV (78-100) fL MCH (26-32) pg MCHC (32-36) g/dL RDW (11.5-14.0) % Plt Count (150-450) x10^3/uL MPV (7.5-11.0) fL Gran % (36.0-66.0) % Immature Gran % (Auto) (0.00-0.4) % Nucleat RBC Rel Count (0.00-0.1) % Eos # (Auto) (0-0.5) x10^3/uL Immature Gran # (Auto) (0.00-0.03) x10^3u/L Absolute Lymphs (auto) (1.0-4.6) x10^3/uL Absolute Monos (auto) (0.0-1.3) x10^3/uL Absolute Nucleated RBC (0.00-0.01) x10^3u/L Lymphocytes % (24.0-44.0) % Monocytes % (0.0-12.0) % Eosinophils % (0.00-5.0) % Basophils % (0.0-0.4) % Absolute Granulocytes (1.4-6.9) x10^3/uL Basophils # (0-0.4) x10^3/uL Sodium (137-145) mmol/L Potassium (3.5-5.1) mmol/L Chloride (98-107) mmol/L Carbon Dioxide (22-30) mmol/L Anion Gap (5-15) MEQ/L BUN (9-20) mg/dL Creatinine (0.66-1.25) mg/dL Estimated GFR ML/MIN Glucose (74-106) mg/dL POC Glucometer (74 to 106) mg/dL Lactic Acid 3.1 H 2.7 H (0.4-2.0) Calcium (8.4-10.2) mg/dL Total Bilirubin (0.2-1.3) mg/dL AST (17-59) U/L ALT (0-50) U/L Alkaline Phosphatase (38-126) U/L Serum Total Protein (6.3-8.2) g/dL Albumin (3.5-5.0) g/dL Procalcitonin (0.030-0.080) ng/mL Urinalys Dipstick Clnc Urine Color (YELLOW) Urine Appearance (CLEAR) Urine pH (5-6) Ur Specific Monroe (1.005-1.025) POC Urine Protein Conf (Negative) Urine Ketones (NEGATIVE) Urine Nitrite (NEGATIVE) Urine Bilirubin (NEGATIVE) Urine Urobilinogen (0-1) mg/dL Urine Leukocytes (NEGATIVE) Urine WBC (Auto) (0-5) /HPF Urine RBC (Auto) (0-2) /HPF U Epithel Cells (Auto) (FEW) /HPF Urine Bacteria (Auto) (NEGATIVE) /HPF Urine RBC (0-5) Nick/ul Ur Culture Indicated? Urine Glucose (NEGATIVE) mg/dL Influenza Type A Ag NEGATIVE (NEGATIVE) Influenza Type B Ag NEGATIVE (NEGATIVE) RSV (PCR) NEGATIVE (Negative) SARS-CoV-2 (PCR) NEGATIVE (NEGATIVE) 02/12/22 02/12/22 02/12/22 Range/Units 03:53 03:53 03:59 WBC 8.2 (4.0-10.5) x10^3/uL RBC 5.13 (4.1-5.6) x10^6/uL Hgb 14.7 (12.5-18.0) g/dL Hct 44.7 (42-50) % MCV 87.1 (78-100) fL MCH 28.7 (26-32) pg MCHC 32.9 (32-36) g/dL RDW 12.7 (11.5-14.0) % Plt Count 215 (150-450) x10^3/uL MPV 10.2 (7.5-11.0) fL Gran % 63.6 (36.0-66.0) % Immature Gran % (Auto) 0.4 (0.00-0.4) % Nucleat RBC Rel Count 0.0 (0.00-0.1) % Eos # (Auto) 0.08 (0-0.5) x10^3/uL Immature Gran # (Auto) 0.03 (0.00-0.03) x10^3u/L Absolute Lymphs (auto) 2.34 (1.0-4.6) x10^3/uL Absolute Monos (auto) 0.52 (0.0-1.3) x10^3/uL Absolute Nucleated RBC 0.00 (0.00-0.01) x10^3u/L Lymphocytes % 28.5 (24.0-44.0) % Monocytes % 6.3 (0.0-12.0) % Eosinophils % 1.0 (0.00-5.0) % Basophils % 0.2 (0.0-0.4) % Absolute Granulocytes 5.22 (1.4-6.9) x10^3/uL Basophils # 0.02 (0-0.4) x10^3/uL Sodium 138 (137-145) mmol/L Potassium 4.3 (3.5-5.1) mmol/L Chloride 104 (98-107) mmol/L Carbon Dioxide 24 (22-30) mmol/L Anion Gap 14.1 (5-15) MEQ/L BUN 18 (9-20) mg/dL Creatinine 0.82 (0.66-1.25) mg/dL Estimated GFR > 60.0 ML/MIN Glucose 289 H (74-106) mg/dL POC Glucometer 255 H (74 to 106) mg/dL Lactic Acid (0.4-2.0) Calcium 8.7 (8.4-10.2) mg/dL Total Bilirubin 0.70 (0.2-1.3) mg/dL AST 28 (17-59) U/L ALT 35 (0-50) U/L Alkaline Phosphatase 108 (38-126) U/L Serum Total Protein 7.2 (6.3-8.2) g/dL Albumin 4.1 (3.5-5.0) g/dL Procalcitonin (0.030-0.080) ng/mL Urinalys Dipstick Clnc Urine Color (YELLOW) Urine Appearance (CLEAR) Urine pH (5-6) Ur Specific Monroe (1.005-1.025) POC Urine Protein Conf (Negative) Urine Ketones (NEGATIVE) Urine Nitrite (NEGATIVE) Urine Bilirubin (NEGATIVE) Urine Urobilinogen (0-1) mg/dL Urine Leukocytes (NEGATIVE) Urine WBC (Auto) (0-5) /HPF Urine RBC (Auto) (0-2) /HPF U Epithel Cells (Auto) (FEW) /HPF Urine Bacteria (Auto) (NEGATIVE) /HPF Urine RBC (0-5) Nick/ul Ur Culture Indicated? Urine Glucose (NEGATIVE) mg/dL Influenza Type A Ag (NEGATIVE) Influenza Type B Ag (NEGATIVE) RSV (PCR) (Negative) SARS-CoV-2 (PCR) (NEGATIVE) 02/12/22 02/12/22 02/12/22 Range/Units 07:15 10:59 16:22 WBC (4.0-10.5) x10^3/uL RBC (4.1-5.6) x10^6/uL Hgb (12.5-18.0) g/dL Hct (42-50) % MCV (78-100) fL MCH (26-32) pg MCHC (32-36) g/dL RDW (11.5-14.0) % Plt Count (150-450) x10^3/uL MPV (7.5-11.0) fL Gran % (36.0-66.0) % Immature Gran % (Auto) (0.00-0.4) % Nucleat RBC Rel Count (0.00-0.1) % Eos # (Auto) (0-0.5) x10^3/uL Immature Gran # (Auto) (0.00-0.03) x10^3u/L Absolute Lymphs (auto) (1.0-4.6) x10^3/uL Absolute Monos (auto) (0.0-1.3) x10^3/uL Absolute Nucleated RBC (0.00-0.01) x10^3u/L Lymphocytes % (24.0-44.0) % Monocytes % (0.0-12.0) % Eosinophils % (0.00-5.0) % Basophils % (0.0-0.4) % Absolute Granulocytes (1.4-6.9) x10^3/uL Basophils # (0-0.4) x10^3/uL Sodium (137-145) mmol/L Potassium (3.5-5.1) mmol/L Chloride (98-107) mmol/L Carbon Dioxide (22-30) mmol/L Anion Gap (5-15) MEQ/L BUN (9-20) mg/dL Creatinine (0.66-1.25) mg/dL Estimated GFR ML/MIN Glucose (74-106) mg/dL POC Glucometer 218 H 310 H 235 H (74 to 106) mg/dL Lactic Acid (0.4-2.0) Calcium (8.4-10.2) mg/dL Total Bilirubin (0.2-1.3) mg/dL AST (17-59) U/L ALT (0-50) U/L Alkaline Phosphatase (38-126) U/L Serum Total Protein (6.3-8.2) g/dL Albumin (3.5-5.0) g/dL Procalcitonin (0.030-0.080) ng/mL Urinalys Dipstick Clnc Urine Color (YELLOW) Urine Appearance (CLEAR) Urine pH (5-6) Ur Specific Monroe (1.005-1.025) POC Urine Protein Conf (Negative) Urine Ketones (NEGATIVE) Urine Nitrite (NEGATIVE) Urine Bilirubin (NEGATIVE) Urine Urobilinogen (0-1) mg/dL Urine Leukocytes (NEGATIVE) Urine WBC (Auto) (0-5) /HPF Urine RBC (Auto) (0-2) /HPF U Epithel Cells (Auto) (FEW) /HPF Urine Bacteria (Auto) (NEGATIVE) /HPF Urine RBC (0-5) Nick/ul Ur Culture Indicated? Urine Glucose (NEGATIVE) mg/dL Influenza Type A Ag (NEGATIVE) Influenza Type B Ag (NEGATIVE) RSV (PCR) (Negative) SARS-CoV-2 (PCR) (NEGATIVE) 02/12/22 Range/Units Unknown WBC (4.0-10.5) x10^3/uL RBC (4.1-5.6) x10^6/uL Hgb (12.5-18.0) g/dL Hct (42-50) % MCV (78-100) fL MCH (26-32) pg MCHC (32-36) g/dL RDW (11.5-14.0) % Plt Count (150-450) x10^3/uL MPV (7.5-11.0) fL Gran % (36.0-66.0) % Immature Gran % (Auto) (0.00-0.4) % Nucleat RBC Rel Count (0.00-0.1) % Eos # (Auto) (0-0.5) x10^3/uL Immature Gran # (Auto) (0.00-0.03) x10^3u/L Absolute Lymphs (auto) (1.0-4.6) x10^3/uL Absolute Monos (auto) (0.0-1.3) x10^3/uL Absolute Nucleated RBC (0.00-0.01) x10^3u/L Lymphocytes % (24.0-44.0) % Monocytes % (0.0-12.0) % Eosinophils % (0.00-5.0) % Basophils % (0.0-0.4) % Absolute Granulocytes (1.4-6.9) x10^3/uL Basophils # (0-0.4) x10^3/uL Sodium (137-145) mmol/L Potassium (3.5-5.1) mmol/L Chloride (98-107) mmol/L Carbon Dioxide (22-30) mmol/L Anion Gap (5-15) MEQ/L BUN (9-20) mg/dL Creatinine (0.66-1.25) mg/dL Estimated GFR ML/MIN Glucose (74-106) mg/dL POC Glucometer (74 to 106) mg/dL Lactic Acid (0.4-2.0) Calcium (8.4-10.2) mg/dL Total Bilirubin (0.2-1.3) mg/dL AST (17-59) U/L ALT (0-50) U/L Alkaline Phosphatase (38-126) U/L Serum Total Protein (6.3-8.2) g/dL Albumin (3.5-5.0) g/dL Procalcitonin (0.030-0.080) ng/mL Urinalys Dipstick Clnc MAIN LAB Urine Color YELLOW (YELLOW) Urine Appearance CLEAR (CLEAR) Urine pH 5.0 (5-6) Ur Specific Monroe 1.020 (1.005-1.025) POC Urine Protein Conf NEGATIVE (Negative) Urine Ketones TRACE A (NEGATIVE) Urine Nitrite NEGATIVE (NEGATIVE) Urine Bilirubin NEGATIVE (NEGATIVE) Urine Urobilinogen 0.2 (0-1) mg/dL Urine Leukocytes NEGATIVE (NEGATIVE) Urine WBC (Auto) NONE (0-5) /HPF Urine RBC (Auto) NONE (0-2) /HPF U Epithel Cells (Auto) NONE (FEW) /HPF Urine Bacteria (Auto) RARE (NEGATIVE) /HPF Urine RBC NEGATIVE (0-5) Nick/ul Ur Culture Indicated? NO Urine Glucose >=1000 A (NEGATIVE) mg/dL Influenza Type A Ag (NEGATIVE) Influenza Type B Ag (NEGATIVE) RSV (PCR) (Negative) SARS-CoV-2 (PCR) (NEGATIVE) Accuchecks Date 02/12/22 Date 02/12/22 Date 02/12/22 Time 11:38 Time 07:31 - Radiology Impressions Radiology Exams & Impressions: Radiology Procedures Category Date Time Status VENOUS BILATERAL EXTREMITY [US] Routine Exams 02/12/22 09:00 Completed Assessment/Plan (1) Epidermolysis bullosa Current Visit: Yes Status: Acute Assessment & Plan: Initial patient examination and evaluation. Patient does have a positive history for a DVT to the left lower extremity repeated tests today demonstrating negative for DVT to the bilateral lower extremity. Cultures of ulcers taken today Bullous blistering popped in the cases of serous fluid however not deroofed iodine painted and bilateral Unna boots applied with iodine paint Continue antibiotics as prescribed until culture and sensitivity has been returned Will monitor closely differential at this time is epidermolysis bullosa or secondary to neuropathy. Highly suspect for streptococcal infection will monitor for this with the culture and sensitivity Will follow closely Code(s): Q81.9 - EPIDERMOLYSIS BULLOSA, UNSPECIFIED (2) Venous insufficiency of both lower extremities Current Visit: Yes Status: Acute Code(s): I87.2 - VENOUS INSUFFICIENCY (CHRONIC) (PERIPHERAL) (3) Localized edema Current Visit: Yes Status: Acute Code(s): R60.0 - LOCALIZED EDEMA (4) Cellulitis of foot Current Visit: Yes Status: Acute Code(s): L03.119 - CELLULITIS OF UNSPECIFIED PART OF LIMB (5) Lymphangitis Current Visit: Yes Status: Acute Code(s): I89.1 - LYMPHANGITIS (6) Lactic acidosis Current Visit: Yes Status: Acute Code(s): E87.20 - ACIDOSIS, UNSPECIFIED (7) Hyperglycemia Current Visit: Yes Status: Acute Code(s): R73.9 - HYPERGLYCEMIA, UNSPECIFIED (8) Diabetes mellitus type II, uncontrolled Current Visit: Yes Status: Chronic Qualifiers: Glycemic state: with hyperglycemia Qualified Code(s): E11.65 - Type 2 diabetes mellitus with hyperglycemia Code(s): KRY7160 - (9) Peripheral neuropathy Current Visit: Yes Status: Chronic Qualifiers: Peripheral neuropathy type: polyneuropathy associated with underlying disease Qualified Code(s): G63 - Polyneuropathy in diseases classified elsewhere Code(s): G62.9 - POLYNEUROPATHY, UNSPECIFIED
[2022-02-12] MEDS: HUMALOG SQ PRN (20:45)
[2022-02-13] MEDS: PIPERACILLIN/TAZOBACTAM 3.375 GM in Sodium Chloride 100ML MINI-BAG PLUS 100 ML IV SCH ×4 (05:45→23:31)
[2022-02-13] MEDS: VANCOMYCIN 1.5 GRAM/300 ML BAG 1.5 GM/300 ML PIGGYBACK IV SCH ×3 (06:11→21:45)
[2022-02-13] MEDS ORDERED: TORAdol 30 mg Injection IV PRN (08:58)
[2022-02-13 09:03] LABS: ANION GAP 12.2 MEQ/L (5-15); BLOOD UREA NITROGEN 14 mg/dL (9-20); CHLORIDE 105 mmol/L (98-107); Calcium 8.9 mg/dL (8.4-10.2); Carbon Dioxide 25 mmol/L (22-30); Creatinine 1 0.99 mg/dL (0.66-1.25); EST GLOMERULAR FILTRATION RATE > 60.0 ML/MIN; Glucose 199 mg/dL (74-106); Potassium 4.4 mmol/L (3.5-5.1); SODIUM 137 mmol/L (137-145)
--- NOTE | 2022-02-13 09:21 | PCM.NOTE ---
Date and Time: 02/13/22917 Subjective Assessment: Doing well, kiet po. Pain is 4/10 currently. He does apparently have a hx of methamphetamine addiction so is trying to avoid pain meds. - Review of Systems Constitutional: No Fever Skin: Cellulitis Objective Exam General Appearance: no apparent distress, alert Neurologic Exam: oriented x 3, cooperative Skin Exam: warm, dry, other (legs/feet are wrapped bilat), No rash Wound Assessment: Skin/Wound Assessment Wound/Incision Assessment Start: 02/13/22 09:06 Text: Status: Active Freq: Protocol: Document 02/13/22 08:00 CHANEL (Rec: 02/13/22 09:09 CHANEL [id number]) Wound/Incision Assessment Lower Wound Assessment Shift Assessment Wound Type CELLULITIS Wound Stage Non Pressure Wound Dressing Status Dry & Intact Drainage Amount None Comment DRESSINGS CLEAN, DRY AND INTACT Eye Exam: eyes nml inspection Ears, Nose, Throat Exam: moist mucous membranes Neck Exam: normal inspection Respiratory Exam: normal breath sounds, lungs clear, No crackles/rales, No rhonchi, No wheezing Cardiovascular Exam: regular rate/rhythm, normal heart sounds, No murmur Gastrointestinal/Abdomen Exam: soft, normal bowel sounds, No tenderness, No distention, No mass, No guarding, No rebound Back Exam: normal inspection, No rash OBJECTIVE DATA Vital Signs: Vital Signs - 24 hr Temp Pulse Resp BP Pulse Ox 02/13/22 07:06 98.0 F 86 16 157/89 96 02/13/22 03:54 97.1 F 63 18 156/88 99 02/12/22 23:48 97.5 F 64 17 123/73 97 02/12/22 20:00 97.5 F 83 19 133/83 98 02/12/22 16:00 97.3 F 80 18 135/77 98 02/12/22 11:38 97.3 F 88 16 144/80 96 Pain Assessment - Last Documented Pain Intensity 4 Pain Scale Used 0-10 Pain Scale Intake and Output: Intake & Output 02/10/22 02/11/22 02/12/22 02/13/22 11:59 11:59 11:59 11:59 Intake Total 240 960 Output Total 800 Balance 240 160 Weight 103.2 kg Lab Results: Lab Results-Last 24 Hours 02/12/22 02/12/2222 Range/Units 10:59 16:22 20:29 Sodium (137-145) mmol/L Potassium (3.5-5.1) mmol/L Chloride (98-107) mmol/L Carbon Dioxide (22-30) mmol/L Anion Gap (5-15) MEQ/L BUN (9-20) mg/dL Creatinine (0.66-1.25) mg/dL Estimated GFR ML/MIN Glucose (74-106) mg/dL POC Glucometer 310 H 235 H 239 H (74 to 106) mg/dL Calcium (8.4-10.2) mg/dL 02/13/22 02/13/22 Range/Units 06:53 07:14 Sodium 137 (137-145) mmol/L Potassium 4.4 (3.5-5.1) mmol/L Chloride 105 (98-107) mmol/L Carbon Dioxide 25 (22-30) mmol/L Anion Gap 12.2 (5-15) MEQ/L BUN 14 (9-20) mg/dL Creatinine 0.99 (0.66-1.25) mg/dL Estimated GFR > 60.0 ML/MIN Glucose 199 H (74-106) mg/dL POC Glucometer 181 H (74 to 106) mg/dL Calcium 8.9 (8.4-10.2) mg/dL Radiology Exams: Radiology Procedures Category Date Time Status VENOUS BILATERAL EXTREMITY [US] Routine Exams 02/12/22 09:00 Completed Assessment/Plan (1) Cellulitis of foot Current Visit: Yes Status: Acute Assessment & Plan: wrapped today; managing per Dr. Cook, thank you. On vanc/zosyn pending culture results. Code(s): L03.119 - CELLULITIS OF UNSPECIFIED PART OF LIMB (2) Diabetes mellitus type II, uncontrolled Current Visit: Yes Status: Chronic Qualifiers: Glycemic state: with hyperglycemia Qualified Code(s): E11.65 - Type 2 diabetes mellitus with hyperglycemia Code(s): [id number] - (3) Peripheral neuropathy Current Visit: Yes Status: Chronic Qualifiers: Peripheral neuropathy type: polyneuropathy associated with underlying disease Qualified Code(s): G63 - Polyneuropathy in diseases classified elsewhere Code(s): G62.9 - POLYNEUROPATHY, UNSPECIFIED
[2022-02-13] MEDS: HUMALOG SQ PRN ×3 (11:57→21:45)
[2022-02-13] MEDS ORDERED: TROUGH DRUG LEVELS IJ ONE (13:30)
[2022-02-13] MEDS: MORPHINE SULFATE 4 MG INJ IV PRN (16:01)
--- NOTE | 2022-02-13 16:05 | XRAY ---
Exam: AP upright portable chest film from 02/13/2022. Comparison: [None.] Indication: 41-year-old male patient for PICC line placement. Findings: A right-sided PICC line is seen pointing inferiorly with the tip at or just above the right atrium at the lower T7 level. This appears in satisfactory position. There is no pneumothorax. The film was obtained in lordotic projection. The transverse heart size is normal. The krunal and mediastinal structures appear unremarkable. The lungs are well inflated and appear clear. Pulmonary vascularity is within normal limits. There is no pneumothorax or pleural fluid. No acute osseous process is seen. Impression: 1. Right-sided PICC line appears in good position with the tip pointing inferiorly at the lower T7 level at or just above the right atrium. 2. No acute cardiopulmonary disease is seen.
[2022-02-13] MEDS ORDERED: PHARMACY DOSING REQUEST MC ONE (16:47)
[2022-02-13] MEDS: OXYCODONE-ACETAMINOPHEN 10-325 PO PRN (21:48)
[2022-02-14] MEDS: OXYCODONE-ACETAMINOPHEN 10-325 PO PRN ×4 (02:21→21:29)
[2022-02-14] MEDS: PIPERACILLIN/TAZOBACTAM 3.375 GM in Sodium Chloride 100ML MINI-BAG PLUS 100 ML IV SCH ×4 (06:25→21:28)
[2022-02-14] MEDS: HUMALOG SQ PRN ×3 (08:02→21:29)
--- NOTE | 2022-02-14 08:22 | PCM.NOTE ---
Date and Time: 02/14/22818 Subjective Assessment: wound culture is still pending, wraps in place to feet. will be seen by podiatry today. patient plans to go home to his sister's and has PICC line for IV abx. there was an incident with his yesterday and he had her escorted away and police had to retrieve his phone from her. Objective Exam General Appearance: no apparent distress Neurologic Exam: alert, oriented x 3 Wound Assessment: Skin/Wound Assessment Wound/Incision Assessment Start: 02/13/22 09:06 Text: Status: Active Freq: Protocol: Document 02/13/22 08:00 CHANEL (Rec: 02/13/22 09:09 CHANEL [id number]) Wound/Incision Assessment Lower Wound Assessment Shift Assessment Wound Type CELLULITIS Wound Stage Non Pressure Wound Dressing Status Dry & Intact Drainage Amount None Comment DRESSINGS CLEAN, DRY AND INTACT Respiratory Exam: normal breath sounds, lungs clear, No respiratory distress Cardiovascular Exam: regular rate/rhythm Gastrointestinal/Abdomen Exam: soft, No tenderness, No mass Extremity Exam: other (knot on left upper arm, no redness or warmth) OBJECTIVE DATA Vital Signs: Vital Signs - 24 hr Temp Pulse Resp BP Pulse Ox 02/14/22 07:46 97.8 F 71 17 142/86 97 02/14/22 03:57 97.5 F 91 H 18 140/85 96 02/14/22 00:00 97.7 F 86 20 159/94 96 02/13/22 20:00 97.7 F 92 H 18 180/95 100 02/13/22 16:00 97.6 F 98 H 16 182/104 98 02/13/22 11:37 98.0 F 82 16 110/57 95 Pain Assessment - Last Documented Pain Intensity 0 Pain Scale Used 0-10 Pain Scale Intake and Output: Intake & Output 02/11/22 02/12/22 02/13/22 02/14/22 11:59 11:59 11:59 11:59 Intake Total 240 1540 2120 Output Total 800 Balance 611 035 2989 Weight 103.2 kg Lab Results: Lab Results-Last 24 Hours 02/13/22 02/13/22 02/13/22 Range/Units 07:14 07:20 11:29 Sodium 137 (137-145) mmol/L Potassium 4.4 (3.5-5.1) mmol/L Chloride 105 (98-107) mmol/L Carbon Dioxide 25 (22-30) mmol/L Anion Gap 12.2 (5-15) MEQ/L BUN 14 (9-20) mg/dL Creatinine 0.99 (0.66-1.25) mg/dL Estimated GFR > 60.0 ML/MIN Glucose 199 H (74-106) mg/dL POC Glucometer 202 H (74 to 106) mg/dL Lactic Acid 1.6 (0.4-2.0) Calcium 8.9 (8.4-10.2) mg/dL Vancomycin Trough (10-20) ug/mL 02/13/22 02/13/22 02/13/22 Range/Units 14:00 16:41 20:12 Sodium (137-145) mmol/L Potassium (3.5-5.1) mmol/L Chloride (98-107) mmol/L Carbon Dioxide (22-30) mmol/L Anion Gap (5-15) MEQ/L BUN (9-20) mg/dL Creatinine (0.66-1.25) mg/dL Estimated GFR ML/MIN Glucose (74-106) mg/dL POC Glucometer 225 H 285 H (74 to 106) mg/dL Lactic Acid (0.4-2.0) Calcium (8.4-10.2) mg/dL Vancomycin Trough 19.75 (10-20) ug/mL 02/14/22 Range/Units 07:38 Sodium (137-145) mmol/L Potassium (3.5-5.1) mmol/L Chloride (98-107) mmol/L Carbon Dioxide (22-30) mmol/L Anion Gap (5-15) MEQ/L BUN (9-20) mg/dL Creatinine (0.66-1.25) mg/dL Estimated GFR ML/MIN Glucose (74-106) mg/dL POC Glucometer 217 H (74 to 106) mg/dL Lactic Acid (0.4-2.0) Calcium (8.4-10.2) mg/dL Vancomycin Trough (10-20) ug/mL Radiology Exams: Radiology Procedures Category Date Time Status CHEST 1 VIEW (PORTABLE) Stat Exams 02/13/22 14:40 Completed VENOUS BILATERAL EXTREMITY [US] Routine Exams 02/12/22 09:00 Completed Multi-Disciplinary Progress Notes: Multi-Disciplinary Progress Notes 02/13/22 11:01 Case Management Note by Silke Cornejo REVIEWED CHART- NO CHANGE IN DC PLANS AT THIS TIME Initialized on 02/13/22 11:01 - END OF NOTE Assessment/Plan (1) Cellulitis of foot Current Visit: Yes Status: Acute Assessment & Plan: on vanc/zosyn, gram negative ID pending from culture Code(s): L03.119 - CELLULITIS OF UNSPECIFIED PART OF LIMB (2) Diabetes mellitus type II, uncontrolled Current Visit: Yes Status: Chronic Qualifiers: Glycemic state: with hyperglycemia Qualified Code(s): E11.65 - Type 2 diabetes mellitus with hyperglycemia Code(s): QWD4184 - (3) Postimmunization reaction Current Visit: Yes Status: Acute Assessment & Plan: advised ice to localized reaction/knot. no allergy Code(s): T88.1XXA - OTH COMPLICATIONS FOLLOWING IMMUNIZATION, NEC, INIT
[2022-02-14] MEDS: VANCOMYCIN 1.5 GRAM/300 ML BAG 1.5 GM/300 ML PIGGYBACK IV SCH ×3 (10:59→22:21)
--- NOTE | 2022-02-14 12:06 | XRAY ---
Exam: AP upright portable chest film from 02/14/2022. Comparison: AP upright portable chest film from 02/13/2022. Indication: 41-year-old male for PICC line placement. Findings: Right-sided PICC line is seen in place with the tip pointing inferiorly at or just beyond the caval-atrial junction. The transverse heart size is normal. The krunal and mediastinal structures appear unremarkable. The inferior margin of the right lateral lung sulcus has been barely cut off from the bottom edge of the film. A tiny transverse strand within the peripheral right midlung may relate to plate atelectasis or minimal pleural reaction within the minor fissure. In retrospect, this is unchanged. The remainder the lung rosario appears clear. Pulmonary vascularity is normal. No pneumothorax or pleural effusion is seen. No acute osseous process is seen. Impression: 1. Right-sided PICC line with tip pointing inferiorly at or immediately inferior to the caval-atrial junction. No pneumothorax is seen. 2. No other acute cardiopulmonary disease is seen.
[2022-02-14] MEDS: Zestril 20 MG PO SCH (13:45)
[2022-02-14] MEDS: NORVASC 5 MG PO SCH (13:45)
[2022-02-14] MEDS: Toprol Xl 50 MG PO SCH (13:45)
[2022-02-14] MEDS: ZOCOR 20MG PO SCH (13:46)
[2022-02-14] MEDS: CHLORTHALIDONE PO SCH (13:46)
[2022-02-14] MEDS: Neurontin PO SCH (13:46)
[2022-02-14] MEDS: Cathflo Activase 2 MG IV ONE ×2 (13:47→14:09)
[2022-02-14] MEDS: NEURONTIN PO SCH (21:29)
[2022-02-15] MEDS: PIPERACILLIN/TAZOBACTAM 3.375 GM in Sodium Chloride 100ML MINI-BAG PLUS 100 ML IV SCH ×4 (06:05→23:40)
[2022-02-15] MEDS: OXYCODONE-ACETAMINOPHEN 10-325 PO PRN ×2 (06:10→21:35)
[2022-02-15 06:27] LABS: Basophil (Absolute #) 0.02 x10^3/uL (0-0.4); Eosinophil % 2.8 % (0.00-5.0); Eosinophil (Absolute #) 0.17 x10^3/uL (0-0.5); Hematocrit 42.6 % (42-50); Hemoglobin 13.6 g/dL (12.5-18.0); Lymphocyte (Absolute #) 2.03 x10^3/uL (1.0-4.6); Lymphocytes % 33.5 % (24.0-44.0); Mean Cell Volume 88.9 fL (78-100); Mean Corpuscular Hemoglobin 28.4 pg (26-32); Mean Corpuscular Hgb Concent. 31.9 g/dL (32-36); Monocyte (Absolute #) 0.61 x10^3/uL (0.0-1.3); Monocytes % 10.1 % (0.0-12.0); Neutrophil % 52.8 % (36.0-66.0); Platelet Count 169 x10^3/uL (150-450); Red Blood Count 4.79 x10^6/uL (4.1-5.6); Red Cell Distribution Width 12.6 % (11.5-14.0); White Blood Count 6.1 x10^3/uL (4.0-10.5)
[2022-02-15 06:39] LABS: ANION GAP 10.7 MEQ/L (5-15); BLOOD UREA NITROGEN 16 mg/dL (9-20); CHLORIDE 104 mmol/L (98-107); Calcium 8.8 mg/dL (8.4-10.2); Carbon Dioxide 26 mmol/L (22-30); Creatinine 1 0.89 mg/dL (0.66-1.25); EST GLOMERULAR FILTRATION RATE > 60.0 ML/MIN; Glucose 205 mg/dL (74-106); Potassium 4.2 mmol/L (3.5-5.1); SODIUM 136 mmol/L (137-145)
--- NOTE | 2022-02-15 08:34 | PCM.NOTE ---
Date and Time: 02/15/22832 Subjective Assessment: doing ok - Review of Systems Constitutional: No Fever, No Chills Eyes: No Symptoms Ears, Nose, & Throat: No Symptoms Respiratory: No Cough, No Short Of Breath Cardiac: No Chest Pain, No Edema, No Syncope Abdominal/Gastrointestinal: No Abdominal Pain, No Nausea, No Vomiting, No Diarrhea Genitourinary Symptoms: No Dysuria Musculoskeletal: No Back Pain, No Neck Pain Skin: No Rash Neurological: No Dizziness, No Focal Weakness, No Sensory Changes Psychological: No Symptoms Endocrine: No Symptoms Hematologic/Lymphatic: No Symptoms Immunological/Allergic: No Symptoms Objective Exam General Appearance: no apparent distress, alert Neurologic Exam: alert, oriented x 3, cooperative, normal mood/affect, nml cerebellar function, sensation nml, No motor deficits Skin Exam: normal color, warm, dry Wound Assessment: Skin/Wound Assessment Wound/Incision Assessment Start: 02/13/22 09:06 Text: Status: Active Freq: Protocol: Document 02/13/22 08:00 CHANEL (Rec: 02/13/22 09:09 CHANEL [id number]) Wound/Incision Assessment Lower Wound Assessment Shift Assessment Wound Type CELLULITIS Wound Stage Non Pressure Wound Dressing Status Dry & Intact Drainage Amount None Comment DRESSINGS CLEAN, DRY AND INTACT Eye Exam: PERRL, EOMI, eyes nml inspection Ears, Nose, Throat Exam: normal ENT inspection, pharynx normal, moist mucous membranes Neck Exam: normal inspection, non-tender, supple, full range of motion Respiratory Exam: normal breath sounds, lungs clear, No respiratory distress Cardiovascular Exam: regular rate/rhythm, normal heart sounds Gastrointestinal/Abdomen Exam: soft, No tenderness, No mass Extremity Exam: normal inspection, normal range of motion Back Exam: normal inspection, normal range of motion, No CVA tenderness, No vertebral tenderness Male Genitalia Exam: deferred Rectal Exam: deferred OBJECTIVE DATA Vital Signs: Vital Signs - 24 hr Temp Pulse Resp BP Pulse Ox 02/15/22 04:00 98.2 F 80 17 106/58 96 02/14/22 23:32 97.5 F 73 20 149/79 96 02/14/22 19:25 97.8 F 86 18 128/72 96 02/14/22 16:00 97.8 F 76 16 154/86 97 02/14/22 12:00 97.3 F 76 16 148/81 97 Pain Assessment - Last Documented Pain Intensity 5 Pain Scale Used 0-10 Pain Scale Intake and Output: Intake & Output 02/12/22 02/13/22 02/14/22 02/15/22 11:59 11:59 11:59 11:59 Intake Total 240 1540 2480 4104 Output Total 800 Balance 690 632 6641 4104 Weight 103.2 kg Lab Results: Lab Results-Last 24 Hours 02/14/22 02/14/22 02/14/22 Range/Units 04:00 11:35 16:18 WBC (4.0-10.5) x10^3/uL RBC (4.1-5.6) x10^6/uL Hgb (12.5-18.0) g/dL Hct (42-50) % MCV (78-100) fL MCH (26-32) pg MCHC (32-36) g/dL RDW (11.5-14.0) % Plt Count (150-450) x10^3/uL MPV (7.5-11.0) fL Gran % (36.0-66.0) % Immature Gran % (Auto) (0.00-0.4) % Nucleat RBC Rel Count (0.00-0.1) % Eos # (Auto) (0-0.5) x10^3/uL Immature Gran # (Auto) (0.00-0.03) x10^3u/L Absolute Lymphs (auto) (1.0-4.6) x10^3/uL Absolute Monos (auto) (0.0-1.3) x10^3/uL Absolute Nucleated RBC (0.00-0.01) x10^3u/L Lymphocytes % (24.0-44.0) % Monocytes % (0.0-12.0) % Eosinophils % (0.00-5.0) % Basophils % (0.0-0.4) % Absolute Granulocytes (1.4-6.9) x10^3/uL Basophils # (0-0.4) x10^3/uL Sodium (137-145) mmol/L Potassium (3.5-5.1) mmol/L Chloride (98-107) mmol/L Carbon Dioxide (22-30) mmol/L Anion Gap (5-15) MEQ/L BUN (9-20) mg/dL Creatinine (0.66-1.25) mg/dL Estimated GFR ML/MIN Glucose (74-106) mg/dL POC Glucometer 299 H 216 H (74 to 106) mg/dL Hemoglobin A1c 8.63 H (4.5-6.0) % Calcium (8.4-10.2) mg/dL 02/14/22 02/15/22 02/15/22 Range/Units 20:47 05:55 05:55 WBC 6.1 (4.0-10.5) x10^3/uL RBC 4.79 (4.1-5.6) x10^6/uL Hgb 13.6 (12.5-18.0) g/dL Hct 42.6 (42-50) % MCV 88.9 (78-100) fL MCH 28.4 (26-32) pg MCHC 31.9 L (32-36) g/dL RDW 12.6 (11.5-14.0) % Plt Count 169 (150-450) x10^3/uL MPV 10.0 (7.5-11.0) fL Gran % 52.8 (36.0-66.0) % Immature Gran % (Auto) 0.5 H (0.00-0.4) % Nucleat RBC Rel Count 0.0 (0.00-0.1) % Eos # (Auto) 0.17 (0-0.5) x10^3/uL Immature Gran # (Auto) 0.03 (0.00-0.03) x10^3u/L Absolute Lymphs (auto) 2.03 (1.0-4.6) x10^3/uL Absolute Monos (auto) 0.61 (0.0-1.3) x10^3/uL Absolute Nucleated RBC 0.00 (0.00-0.01) x10^3u/L Lymphocytes % 33.5 (24.0-44.0) % Monocytes % 10.1 (0.0-12.0) % Eosinophils % 2.8 (0.00-5.0) % Basophils % 0.3 (0.0-0.4) % Absolute Granulocytes 3.20 (1.4-6.9) x10^3/uL Basophils # 0.02 (0-0.4) x10^3/uL Sodium 136 L (137-145) mmol/L Potassium 4.2 (3.5-5.1) mmol/L Chloride 104 (98-107) mmol/L Carbon Dioxide 26 (22-30) mmol/L Anion Gap 10.7 (5-15) MEQ/L BUN 16 (9-20) mg/dL Creatinine 0.89 (0.66-1.25) mg/dL Estimated GFR > 60.0 ML/MIN Glucose 205 H (74-106) mg/dL POC Glucometer 232 H (74 to 106) mg/dL Hemoglobin A1c (4.5-6.0) % Calcium 8.8 (8.4-10.2) mg/dL 02/15/22 Range/Units 07:14 WBC (4.0-10.5) x10^3/uL RBC (4.1-5.6) x10^6/uL Hgb (12.5-18.0) g/dL Hct (42-50) % MCV (78-100) fL MCH (26-32) pg MCHC (32-36) g/dL RDW (11.5-14.0) % Plt Count (150-450) x10^3/uL MPV (7.5-11.0) fL Gran % (36.0-66.0) % Immature Gran % (Auto) (0.00-0.4) % Nucleat RBC Rel Count (0.00-0.1) % Eos # (Auto) (0-0.5) x10^3/uL Immature Gran # (Auto) (0.00-0.03) x10^3u/L Absolute Lymphs (auto) (1.0-4.6) x10^3/uL Absolute Monos (auto) (0.0-1.3) x10^3/uL Absolute Nucleated RBC (0.00-0.01) x10^3u/L Lymphocytes % (24.0-44.0) % Monocytes % (0.0-12.0) % Eosinophils % (0.00-5.0) % Basophils % (0.0-0.4) % Absolute Granulocytes (1.4-6.9) x10^3/uL Basophils # (0-0.4) x10^3/uL Sodium (137-145) mmol/L Potassium (3.5-5.1) mmol/L Chloride (98-107) mmol/L Carbon Dioxide (22-30) mmol/L Anion Gap (5-15) MEQ/L BUN (9-20) mg/dL Creatinine (0.66-1.25) mg/dL Estimated GFR ML/MIN Glucose (74-106) mg/dL POC Glucometer 178 H (74 to 106) mg/dL Hemoglobin A1c (4.5-6.0) % Calcium (8.4-10.2) mg/dL Radiology Exams: Radiology Procedures Category Date Time Status CHEST 1 VIEW (PORTABLE) Stat Exams 02/13/22 14:40 Completed Portable Chest [CHEST 1 VIEW (PORTABLE)] Routine Exams 02/14/22 12:00 Completed Multi-Disciplinary Progress Notes: Multi-Disciplinary Progress Notes 02/14/22 13:53 Case Management Note by Silke Cornejo HAS ACCEPTED PATIENT AND HAS STARTED AUTH Initialized on 02/14/22 13:53 - END OF NOTE 02/14/22 11:25 Case Management Note by Silke Cornejo UNABLE TO TAKE PATIENT'S INSURANCE REFERRAL FAXED TO [facility]- THEY REPORT THEY SHOULD BE ABLE TO ACCEPT AND WILL NOTIFY USE WHEN THEY START PRECERT Initialized on 02/14/22 11:25 - END OF NOTE 02/14/22 08:48 Case Management Note by Silke Cornejo REFERRAL FAXED TO [facility] AT THIS TIME Initialized on 02/14/22 08:48 - END OF NOTE 02/14/22 08:45 Case Management Note by Silke Cornejo DUE CONFLICT WITH HIS PATIENT JUAN FN TO STAY WITH FAMILY IN [place]. I DISCUSSED LOCAL REHAB PLACEMENT WITH PATIENT UNTIL HIS LEGS ARE HEALED AND HE IS DONE WITH ANTIBIOTICS PATIENT WILL HAVE A LONG DRIVE TO GET BACK AND FORTH FOR FOLLOW UPS. PATIENT AGREED THIS WOULD BE BEST. WILL TRY FOR PLACEMENT WHERE SR. [place]. Initialized on 02/14/22 08:45 - END OF NOTE Assessment/Plan (1) Cellulitis of foot Current Visit: Yes Status: Acute Assessment & Plan: Chief Complaint Diagnosis DIABETIC FOOT ULCERS, CELLULITIS, LYMPHANGITIS Allergies Allergy/AdvReac Type Severity Reaction Status Date / Time No Known Drug Allergies Allergy Verified 02/12/22 03:20 Vital Signs (Last 24 hours) Temp Pulse Resp BP Pulse Ox 02/15/22 04:00 98.2 F 80 17 106/58 96 02/14/22 23:32 97.5 F 73 20 149/79 96 02/14/22 19:25 97.8 F 86 18 128/72 96 02/14/22 16:00 97.8 F 76 16 154/86 97 02/14/22 12:00 97.3 F 76 16 148/81 97 Home Medications Medication Instructions Recorded Confirmed Last Taken Type Amlodipine Besylate [Norvasc] 10 mg PO DAILY 02/14/22 02/14/22 02/11/22 History Atorvastatin Calcium 40 mg PO DAILY 02/14/22 02/14/22 02/11/22 History Chlorthalidone 25 mg PO DAILY 02/14/22 02/14/22 02/11/22 History Ezetimibe 10 mg [Zetia 10 MG] 10 mg PO DAILY 02/14/22 02/14/22 02/11/22 History Gabapentin [Neurontin ] 100 mg PO DAILY 02/14/22 02/14/22 02/11/22 History Gabapentin [Neurontin ] 300 mg PO HS 02/14/22 02/14/22 02/11/22 History Insulin Degludec [Tresiba 60 unit SQ DAILY 02/14/22 02/14/22 02/11/22 History Flextouch U-200] Insulin Lispro [Humalog] 1 unit SQ UD 02/14/22 02/14/22 Unknown History Lisinopril 20 mg [Zestril 20 40 mg PO DAILY 02/14/22 02/14/22 02/11/22 History MG] Metformin HCl 500 mg 1,000 mg PO BIDWM 02/14/22 02/14/22 02/11/22 History [Glucophage 500 MG] Metoprolol Succinate 50 mg 50 mg PO DAILY 02/14/22 02/14/22 02/11/22 History [Toprol Xl 50 MG] Rimegepant Sulfate [Nurtec Odt] 75 mg PO UD 02/14/22 02/14/22 02/11/22 History Current Medications Generic Name Dose Route Start Last Admin Trade Name Freq PRN Reason Stop Dose Admin Acetaminophen 650 mg 02/12/22 03:15 Acetaminophen 325 Mg Tablet PO 03/14/22 03:14 Q4H PRN PRN PAIN AND/OR FEVER Amlodipine Besylate 10 mg 02/14/22 12:00 02/14/22 13:45 Amlodipine Besylate 5 Mg Tablet PO 03/16/22 11:59 10 mg DAILY WAN Administration Chlorthalidone 25 mg 02/14/22 12:00 02/14/22 13:46 Chlorthalidone 25 Mg Tablet PO 03/16/22 11:59 25 mg DAILY WAN Administration Gabapentin 100 mg 02/14/22 12:00 02/14/22 13:46 Gabapentin 100 Mg Capsule PO 03/16/22 11:59 100 mg DAILY WAN Administration Gabapentin 300 mg 02/14/22 22:00 02/14/22 21:29 Gabapentin 300 Mg Capsule PO 03/16/22 21:59 300 mg HS WAN Administration Piperacillin Sod/Tazobactam 100 mls @ 200 mls/hr 02/12/22 06:00 02/15/22 06:05 Sod 3.375 gm/ Sodium Chloride IV 02/16/22 05:59 200 mls/hr Q6HT WAN Administration Vancomycin HCl 1.5 gm in 300 mls @ 200 mls/hr 02/13/22 22:00 02/14/22 22:21 Vancomycin 1.5 Gram/300 Ml Bag IV 03/15/22 21:59 200 mls/hr Q12HT WAN Administration Insulin Human Lispro 0 unit 02/12/22 17:31 02/14/22 21:29 Insulin Lispro 1 Unit SQ 03/14/22 17:30 2 unit UD PRN Administration HYPERGLYCEMIA Ketorolac Tromethamine 30 mg 02/13/22 08:58 02/13/22 09:26 Ketorolac Tromethamine 30 Mg/Ml Inj IV 02/18/22 08:57 30 mg Q6H PRN PRN Administration PAIN Lisinopril 40 mg 02/14/22 12:00 02/14/22 13:45 Lisinopril 20 Mg Tablet PO 03/16/22 11:59 40 mg DAILY WAN Administration Metoprolol Succinate 50 mg 02/14/22 12:00 02/14/22 13:45 Metoprolol Succinate 50 Mg Tablet.Sa PO 03/16/22 11:59 50 mg DAILY WAN Administration Morphine Sulfate 4 mg 02/12/22 03:15 02/13/22 16:01 Morphine Sulfate 4 Mg/Ml Injection IV 02/17/22 03:14 4 mg Q4H PRN PRN Administration PAIN Oxycodone/Acetaminophen 1 tab 02/12/22 12:37 02/15/22 06:10 Oxycodone / Apap 10/325 Mg 1 Tablet PO 02/17/22 12:36 1 tab Q4H PRN PRN Administration PAIN Simvastatin 40 mg 02/14/22 12:00 02/14/22 13:46 Simvastatin 20 Mg Tablet PO 03/16/22 11:59 40 mg DAILY WAN Administration Discontinued Medications Generic Name Dose Route Start Last Admin Trade Name Freq PRN Reason Stop Dose Admin Alteplase, Recombinant 2 mg 02/14/22 13:16 02/14/22 14:09 Alteplase 2 Mg Vial IV 02/14/22 13:17 Not Given UD ONE Device 1 02/13/22 13:30 02/13/22 14:45 Therapuetic Drug Level Monitor Each IJ 02/13/22 13:31 1 1XONLY ONE Administration Diphtheria/Tetanus/Acell Pertussis 0.5 ml 02/12/22 00:45 02/12/22 01:18 Tdap --Diph,Pertuss(Acell),Tet Vac/Pf 0.5 Ml Vial IM 02/12/22 00:46 0.5 ml .ONCE ONE Administration Diphtheria/Tetanus/Acell Pertussis Confirm 02/12/22 01:08 Tdap --Diph,Pertuss(Acell),Tet Vac/Pf 0.5 Ml Vial Administered 02/12/22 01:09 Dose 0.5 ml IM .STK-MED ONE Vancomycin HCl 1 gm in 200 mls @ 125 mls/hr 02/12/22 00:46 02/12/22 02:21 Vancomycin 1 Gram/200 Ml Bag IV 02/12/22 02:21 125 ml/hr STAT ONE 125 mls/hr Administration Piperacillin Sod/Tazobactam 100 mls @ 200 mls/hr 02/12/22 00:47 02/12/22 01:20 Sod 3.375 gm/ Sodium Chloride IV 02/12/22 01:16 200 mls/hr STAT ONE Administration Sodium Chloride 1,000 mls @ 999 mls/hr 02/12/22 00:47 02/12/22 01:19 Sodium Chloride 0.9% 1000 Ml IV 02/12/22 01:47 999 mls/hr .Q1H1M STA Administration Sodium Chloride Confirm 02/12/22 01:08 Sodium Chloride 0.9% 1000 Ml Administered 02/12/22 01:09 Dose 1,000 mls @ ud .ROUTE .STK-MED ONE Sodium Chloride Confirm 02/12/22 01:10 Sodium Chloride 100ml Mini-Bag Plus Administered 02/12/22 01:11 Dose 100 mls @ ud IV .STK-MED ONE Vancomycin HCl Confirm 02/12/22 02:18 Vancomycin 1 Gram/200 Ml Bag Administered 02/12/22 02:19 Dose 1 gm in 200 mls @ ud IV .STK-MED ONE Vancomycin HCl 1 gm in 200 mls @ 125 mls/hr 02/12/22 03:15 02/12/22 03:37 Vancomycin 1 Gram/200 Ml Bag IV 03/14/22 03:14 Not Given Q24H WAN Sodium Chloride Confirm 02/12/22 05:20 Sodium Chloride 100ml Mini-Bag Plus Administered 02/12/22 05:21 Dose 100 mls @ ud IV .STK-MED ONE Vancomycin HCl 1.5 gm in 300 mls @ 200 mls/hr 02/12/22 12:00 02/13/22 15:16 Vancomycin 1.5 Gram/300 Ml Bag IV 03/14/22 11:59 Not Given Q8HT WAN Morphine Sulfate 4 mg 02/12/22 02:12 02/12/22 02:21 Morphine Sulfate 4 Mg/Ml Injection IV 02/12/22 02:13 4 mg STAT ONE Administration Morphine Sulfate Confirm 02/12/22 02:18 Morphine Sulfate 4 Mg/Ml Injection Administered 02/12/22 02:19 Dose 4 mg .ROUTE .STK-MED ONE Non-Formulary Medication 1 each 02/13/22 16:47 02/14/22 20:07 Pharmacy Dosing Request MC 02/13/22 16:48 Not Given STAT ONE Piperacillin Sod/Tazobactam Sod Confirm 02/12/22 01:08 Piperacillin/Tazobactam Sodium 3.375 Gm Vial Administered 02/12/22 01:09 Dose 3.375 gm IV .STK-MED ONE Piperacillin Sod/Tazobactam Sod Confirm 02/12/22 05:20 Piperacillin/Tazobactam Sodium 3.375 Gm Vial Administered 02/12/22 05:21 Dose 3.375 gm IV .STK-MED ONE Intake & Output (Last 24 hours) 02/12/22 02/13/22 02/14/22 02/15/22 11:59 11:59 11:59 11:59 Intake Total 240 1540 2480 4104 Output Total 800 Balance 016 788 1878 4104 Weight 103.2 kg Microbiology Results (Last 24 hours) 02/12/22 09:00 Foot - Right Wound Culture - Final NO GROWTH 02/12/22 09:00 Toe - L 4th Anaerobic Culture - Pending 02/12/22 09:00 Toe - L 4th Wound Culture - Final Proteus Mirabilis 02/12/22 09:03 Toe - Left 5th Toe Wound Culture - Final Proteus Mirabilis Laboratory Results (Last 24 hours) 02/15/22 02/15/22 02/15/22 07:14 05:55 05:55 WBC 6.1 RBC 4.79 Hgb 13.6 Hct 42.6 MCV 88.9 MCH 28.4 MCHC 31.9 L RDW 12.6 Plt Count 169 MPV 10.0 Gran % 52.8 Immature Gran % (Auto) 0.5 H Nucleat RBC Rel Count 0.0 Eos # (Auto) 0.17 Immature Gran # (Auto) 0.03 Absolute Lymphs (auto) 2.03 Absolute Monos (auto) 0.61 Absolute Nucleated RBC 0.00 Lymphocytes % 33.5 Monocytes % 10.1 Eosinophils % 2.8 Basophils % 0.3 Absolute Granulocytes 3.20 Basophils # 0.02 Sodium 136 L Potassium 4.2 Chloride 104 Carbon Dioxide 26 Anion Gap 10.7 BUN 16 Creatinine 0.89 Estimated GFR > 60.0 Glucose 205 H POC Glucometer 178 H Hemoglobin A1c Calcium 8.8 02/14/22 02/14/22 02/14/22 20:47 16:18 11:35 WBC RBC Hgb Hct MCV MCH MCHC RDW Plt Count MPV Gran % Immature Gran % (Auto) Nucleat RBC Rel Count Eos # (Auto) Immature Gran # (Auto) Absolute Lymphs (auto) Absolute Monos (auto) Absolute Nucleated RBC Lymphocytes % Monocytes % Eosinophils % Basophils % Absolute Granulocytes Basophils # Sodium Potassium Chloride Carbon Dioxide Anion Gap BUN Creatinine Estimated GFR Glucose POC Glucometer 232 H 216 H 299 H Hemoglobin A1c Calcium 02/14/22 04:00 WBC RBC Hgb Hct MCV MCH MCHC RDW Plt Count MPV Gran % Immature Gran % (Auto) Nucleat RBC Rel Count Eos # (Auto) Immature Gran # (Auto) Absolute Lymphs (auto) Absolute Monos (auto) Absolute Nucleated RBC Lymphocytes % Monocytes % Eosinophils % Basophils % Absolute Granulocytes Basophils # Sodium Potassium Chloride Carbon Dioxide Anion Gap BUN Creatinine Estimated GFR Glucose POC Glucometer Hemoglobin A1c 8.63 H Calcium Orders (Last 24 hours) Category Date Time Status Portable Chest [CHEST 1 VIEW (PORTABLE)] Routine Exams 02/14/22 12:00 Completed BMP AM.LAB Lab 02/15/22 05:55 Completed CBC W DIFF AM.LAB Lab 02/15/22 05:55 Completed POCT GLUCOSE Stat Lab 02/14/22 07:38 Completed POCT GLUCOSE Stat Lab 02/14/22 11:35 Completed POCT GLUCOSE Stat Lab 02/14/22 16:18 Completed POCT GLUCOSE Stat Lab 02/14/22 20:47 Completed POCT GLUCOSE Stat Lab 02/15/22 07:14 Completed Alteplase 2 mg [Cathflo Activase 2 MG] Med 02/14/22 13:16 Discontinued 2 mg IV UD ONE Amlodipine Besylate 5 mg [Norvasc 5 mg] Med 02/14/22 12:00 Active 10 mg PO DAILY Chlorthalidone Med 02/14/22 12:00 Active 25 mg PO DAILY Gabapentin [Neurontin ] Med 02/14/22 12:00 Active 100 mg PO DAILY Gabapentin [Neurontin ] Med 02/14/22 22:00 Active 300 mg PO HS Lisinopril 20 mg [Zestril 20 MG] Med 02/14/22 12:00 Active 40 mg PO DAILY Metoprolol Succinate 50 mg [Toprol Xl 50 MG] Med 02/14/22 12:00 Active 50 mg PO DAILY Simvastatin 20Mg [Zocor 20Mg] Med 02/14/22 12:00 Active 40 mg PO DAILY Patient Care Notes (Last 24 hours) 02/14/22 14:41 Nursing Note by Helen Bojorquez PATIENT PICC LINE VERY SLUGGISH. THIS NURSE AND POUL[employer] F[employer] MANAGER BOTH ASSESSED EACH LUMEN. ORDER TO CHECK PLACEMENT BEFORE ADMINISTERING CATHFLO. WHEN THIS NURSE WENT TO ADMINISTER CATHFLO, PATIENT HAD ARM POSITIONED UP OVER HIS HEAD, AND BOTH LINES FLUSHED WITHOUT DIFFICULTY. CATHFLO NOT ADMINISTERED. PATIENT HAVING ANTIBIOTICS TRANSFUSED WITHOUT DIFFICULTY AT THIS TIME. STILL WILL NOT FLUSH FREELY UNLESS IN ONE VERY SPECIFIC POSITION. WILL CONTACT [facility] WITH PICC PLACEMENT TEAM Initialized on 02/14/22 14:41 - END OF NOTE 02/14/22 13:53 Case Management Note by Silke Cornejo HAS ACCEPTED PATIENT AND HAS STARTED AUTH Initialized on 02/14/22 13:53 - END OF NOTE 02/14/22 13:19 Nursing Note by Helen Bojorquez MICHAEL GAVE ORDER FOR CATHFLO FOR PICC LINE Initialized on 02/14/22 13:19 - END OF NOTE 02/14/22 11:25 Case Management Note by Silke Cornejo UNABLE TO TAKE PATIENT'S INSURANCE REFERRAL FAXED TO [facility]- THEY REPORT THEY SHOULD BE ABLE TO ACCEPT AND WILL NOTIFY USE WHEN THEY START PRECERT Initialized on 02/14/22 11:25 - END OF NOTE 02/14/22 08:48 Case Management Note by Silke Cornejo REFERRAL FAXED TO [facility] AT THIS TIME Initialized on 02/14/22 08:48 - END OF NOTE 02/14/22 08:45 Case Management Note by Silke Cornejo DUE CONFLICT WITH HIS PATIENT PALSN TO STAY WITH FAMILY IN [place]. I DISCUSSED LOCAL REHAB PLACEMENT WITH PATIENT UNTIL HIS LEGS ARE HEALED AND HE IS DONE WITH ANTIBIOTICS PATIENT WILL HAVE A LONG DRIVE TO GET BACK AND FORTH FOR FOLLOW UPS. PATIENT AGREED THIS WOULD BE BEST. WILL TRY FOR PLACEMENT WHERE SR. [facility]. Initialized on 02/14/22 08:45 - END OF NOTE Code(s): L03.119 - CELLULITIS OF UNSPECIFIED PART OF LIMB
[2022-02-15] MEDS ORDERED: LIPITOR 40MG PO SCH (10:00)
[2022-02-15] MEDS ORDERED: NON-FORMULARY ITEM (Amlodipine Besylate [Norvasc] 10 MG Tablet) PO SCH (10:00)
[2022-02-15] MEDS: CHLORTHALIDONE PO SCH (10:27)
[2022-02-15] MEDS: Zestril 20 MG PO SCH (10:27)
[2022-02-15] MEDS: NORVASC 5 MG PO SCH (10:27)
[2022-02-15] MEDS: Toprol Xl 50 MG PO SCH (10:27)
[2022-02-15] MEDS: ZOCOR 20MG PO SCH (10:28)
[2022-02-15] MEDS: Neurontin PO SCH (10:28)
[2022-02-15] MEDS: VANCOMYCIN 1.5 GRAM/300 ML BAG 1.5 GM/300 ML PIGGYBACK IV SCH ×2 (10:35→21:35)
[2022-02-15] MEDS: HUMALOG SQ PRN ×2 (17:14→21:35)
[2022-02-15] MEDS: NEURONTIN PO SCH (21:34)
[2022-02-16] MEDS: PIPERACILLIN/TAZOBACTAM 3.375 GM in Sodium Chloride 100ML MINI-BAG PLUS 100 ML IV SCH ×3 (06:08→17:59)
--- NOTE | 2022-02-16 08:38 | PCM.NOTE ---
Date and Time: 02/16/22835 Subjective Assessment: doing ok - Review of Systems Constitutional: No Fever, No Chills Eyes: No Symptoms Ears, Nose, & Throat: No Symptoms Respiratory: No Cough, No Short Of Breath Cardiac: No Chest Pain, No Edema, No Syncope Abdominal/Gastrointestinal: No Abdominal Pain, No Nausea, No Vomiting, No Diarrhea Genitourinary Symptoms: No Dysuria Musculoskeletal: No Back Pain, No Neck Pain Skin: Cellulitis, No Rash Neurological: No Dizziness, No Focal Weakness, No Sensory Changes Psychological: No Symptoms Endocrine: No Symptoms Hematologic/Lymphatic: No Symptoms Immunological/Allergic: No Symptoms Objective Exam General Appearance: no apparent distress, alert Neurologic Exam: alert, oriented x 3, cooperative, normal mood/affect, nml cerebellar function, sensation nml, No motor deficits Skin Exam: normal color, warm, dry Wound Assessment: Skin/Wound Assessment Wound/Incision Assessment Start: 02/13/22 09:06 Text: Status: Active Freq: Protocol: Document 02/13/22 08:00 CHANEL (Rec: 02/13/22 09:09 CHANEL [id number]) Wound/Incision Assessment Lower Wound Assessment Shift Assessment Wound Type CELLULITIS Wound Stage Non Pressure Wound Dressing Status Dry & Intact Drainage Amount None Comment DRESSINGS CLEAN, DRY AND INTACT Eye Exam: PERRL, EOMI, eyes nml inspection Ears, Nose, Throat Exam: normal ENT inspection, pharynx normal, moist mucous membranes Neck Exam: normal inspection, non-tender, supple, full range of motion Respiratory Exam: normal breath sounds, lungs clear, No respiratory distress Cardiovascular Exam: regular rate/rhythm, normal heart sounds Gastrointestinal/Abdomen Exam: soft, No tenderness, No mass Extremity Exam: normal inspection, normal range of motion, inflammation, swelling Back Exam: normal inspection, normal range of motion, No CVA tenderness, No vertebral tenderness Male Genitalia Exam: deferred Rectal Exam: deferred OBJECTIVE DATA Vital Signs: Vital Signs - 24 hr Temp Pulse Resp BP Pulse Ox 02/16/22 08:00 98 F 76 16 98/56 94 L 02/16/22 04:00 97.8 F 70 16 99/62 94 L 02/15/22 23:42 98.0 F 73 18 114/61 97 02/15/22 20:00 97.3 F 76 16 135/78 96 02/15/22 17:19 97.4 F 79 16 136/88 96 02/15/22 13:13 97.3 F 69 16 127/74 100 02/15/22 10:25 68 107/70 Pain Assessment - Last Documented Pain Intensity 4 Pain Scale Used 0-10 Pain Scale Intake and Output: Intake & Output 02/13/22 02/14/22 02/15/22 02/16/22 11:59 11:59 11:59 11:59 Intake Total 1540 2480 4344 2664 Output Total 800 Balance 740 2480 4344 2664 Weight 103.2 kg Lab Results: Lab Results-Last 24 Hours 02/15/22 02/15/22 02/15/22 Range/Units 12:10 15:52 21:26 POC Glucometer 196 H 247 H 321 H (74 to 106) mg/dL 02/16/22 Range/Units 06:50 POC Glucometer 180 H (74 to 106) mg/dL Radiology Exams: Radiology Procedures Category Date Time Status Portable Chest [CHEST 1 VIEW (PORTABLE)] Routine Exams 02/14/22 12:00 Completed Assessment/Plan (1) Cellulitis of foot Current Visit: Yes Status: Acute Assessment & Plan: Chief Complaint Diagnosis DIABETIC FOOT ULCERS, CELLULITIS, LYMPHANGITIS Allergies Allergy/AdvReac Type Severity Reaction Status Date / Time No Known Drug Allergies Allergy Verified 02/12/22 03:20 Vital Signs (Last 24 hours) Temp Pulse Resp BP Pulse Ox 02/16/22 08:00 98 F 76 16 98/56 94 L 02/16/22 04:00 97.8 F 70 16 99/62 94 L 02/15/22 23:42 98.0 F 73 18 114/61 97 02/15/22 20:00 97.3 F 76 16 135/78 96 02/15/22 17:19 97.4 F 79 16 136/88 96 02/15/22 13:13 97.3 F 69 16 127/74 100 02/15/22 10:25 68 107/70 Home Medications Medication Instructions Recorded Confirmed Last Taken Type Amlodipine Besylate [Norvasc] 10 mg PO DAILY 02/14/22 02/14/22 02/11/22 History Atorvastatin Calcium 40 mg PO DAILY 02/14/22 02/14/22 02/11/22 History Chlorthalidone 25 mg PO DAILY 12/05/0702/14/22 02/11/22 History Ezetimibe 10 mg [Zetia 10 MG] 10 mg PO DAILY 02/14/22 02/14/22 02/11/22 History Gabapentin [Neurontin ] 100 mg PO DAILY 02/14/22 02/14/22 02/11/22 History Gabapentin [Neurontin ] 300 mg PO HS 02/14/22 02/14/22 02/11/22 History Insulin Degludec [Tresiba 60 unit SQ DAILY 02/14/22 02/14/22 02/11/22 History Flextouch U-200] Insulin Lispro [Humalog] 1 unit SQ UD 02/14/22 02/14/22 Unknown History Lisinopril 20 mg [Zestril 20 40 mg PO DAILY 02/14/22 02/14/22 02/11/22 History MG] Metformin HCl 500 mg 1,000 mg PO BIDWM 02/14/22 02/14/22 02/11/22 History [Glucophage 500 MG] Metoprolol Succinate 50 mg 50 mg PO DAILY 02/14/22 02/14/22 02/11/22 History [Toprol Xl 50 MG] Rimegepant Sulfate [Nurtec Odt] 75 mg PO UD 02/14/22 02/14/22 02/11/22 History Current Medications Generic Name Dose Route Start Last Admin Trade Name Freq PRN Reason Stop Dose Admin Acetaminophen 650 mg 02/12/22 03:15 Acetaminophen 325 Mg Tablet PO 03/14/22 03:14 Q4H PRN PRN PAIN AND/OR FEVER Amlodipine Besylate 10 mg 02/14/22 12:00 02/15/22 10:27 Amlodipine Besylate 5 Mg Tablet PO 03/16/22 11:59 Not Given DAILY WAN Chlorthalidone 25 mg 02/14/22 12:00 02/15/22 10:27 Chlorthalidone 25 Mg Tablet PO 03/16/22 11:59 25 mg DAILY WAN Administration Device 1 02/16/22 09:30 Therapuetic Drug Level Monitor Each IJ 02/16/22 09:31 1XONLY ONE Gabapentin 100 mg 02/14/22 12:00 02/15/22 10:28 Gabapentin 100 Mg Capsule PO 03/16/22 11:59 100 mg DAILY WAN Administration Gabapentin 300 mg 02/14/22 22:00 02/15/22 21:34 Gabapentin 300 Mg Capsule PO 03/16/22 21:59 300 mg HS WAN Administration Piperacillin Sod/Tazobactam 100 mls @ 200 mls/hr 02/12/22 06:00 02/16/22 06:08 Sod 3.375 gm/ Sodium Chloride IV 02/19/22 05:59 200 mls/hr Q6HT WAN Administration Vancomycin HCl 1.5 gm in 300 mls @ 200 mls/hr 02/13/22 22:00 02/15/22 21:35 Vancomycin 1.5 Gram/300 Ml Bag IV 03/15/22 21:59 200 mls/hr Q12HT WAN Administration Insulin Human Lispro 0 unit 02/12/22 17:31 02/15/22 21:35 Insulin Lispro 1 Unit SQ 03/14/22 17:30 6 unit UD PRN Administration HYPERGLYCEMIA Ketorolac Tromethamine 30 mg 02/13/22 08:58 02/13/22 09:26 Ketorolac Tromethamine 30 Mg/Ml Inj IV 02/18/22 08:57 30 mg Q6H PRN PRN Administration PAIN Lisinopril 40 mg 02/14/22 12:00 02/15/22 10:27 Lisinopril 20 Mg Tablet PO 03/16/22 11:59 Not Given DAILY WAN Metoprolol Succinate 50 mg 02/14/22 12:00 02/15/22 10:27 Metoprolol Succinate 50 Mg Tablet.Sa PO 03/16/22 11:59 50 mg DAILY WAN Administration Morphine Sulfate 4 mg 02/12/22 03:15 02/13/22 16:01 Morphine Sulfate 4 Mg/Ml Injection IV 02/17/22 03:14 4 mg Q4H PRN PRN Administration PAIN Oxycodone/Acetaminophen 1 tab 02/12/22 12:37 02/15/22 21:35 Oxycodone / Apap 10/325 Mg 1 Tablet PO 02/21/22 12:00 1 tab Q4H PRN PRN Administration PAIN Simvastatin 40 mg 02/14/22 12:00 02/15/22 10:28 Simvastatin 20 Mg Tablet PO 03/16/22 11:59 40 mg DAILY WAN Administration Discontinued Medications Generic Name Dose Route Start Last Admin Trade Name Bonifacio PRN Reason Stop Dose Admin Alteplase, Recombinant 2 mg 02/14/22 13:16 02/14/22 14:09 Alteplase 2 Mg Vial IV 02/14/22 13:17 Not Given UD ONE Device 1 02/13/22 13:30 02/13/22 14:45 Therapuetic Drug Level Monitor Each IJ 02/13/22 13:31 1 1XONLY ONE Administration Diphtheria/Tetanus/Acell Pertussis 0.5 ml 02/12/22 00:45 02/12/22 01:18 Tdap --Diph,Pertuss(Acell),Tet Vac/Pf 0.5 Ml Vial IM 02/12/22 00:46 0.5 ml .ONCE ONE Administration Diphtheria/Tetanus/Acell Pertussis Confirm 02/12/22 01:08 Tdap --Diph,Pertuss(Acell),Tet Vac/Pf 0.5 Ml Vial Administered 02/12/22 01:09 Dose 0.5 ml IM .STK-MED ONE Vancomycin HCl 1 gm in 200 mls @ 125 mls/hr 02/12/22 00:46 02/12/22 02:21 Vancomycin 1 Gram/200 Ml Bag IV 02/12/22 02:21 125 ml/hr STAT ONE 125 mls/hr Administration Piperacillin Sod/Tazobactam 100 mls @ 200 mls/hr 02/12/22 00:47 02/12/22 0 1:20 Sod 3.375 gm/ Sodium Chloride IV 02/12/22 01:16 200 mls/hr STAT ONE Administration Sodium Chloride 1,000 mls @ 999 mls/hr 02/12/22 00:47 02/12/22 01:19 Sodium Chloride 0.9% 1000 Ml IV 02/12/22 01:47 999 mls/hr .Q1H1M STA Administration Sodium Chloride Confirm 02/12/22 01:08 Sodium Chloride 0.9% 1000 Ml Administered 02/12/22 01:09 Dose 1,000 mls @ ud .ROUTE .STK-MED ONE Sodium Chloride Confirm 02/12/22 01:10 Sodium Chloride 100ml Mini-Bag Plus Administered 02/12/22 01:11 Dose 100 mls @ ud IV .STK-MED ONE Vancomycin HCl Confirm 02/12/22 02:18 Vancomycin 1 Gram/200 Ml Bag Administered 02/12/22 02:19 Dose 1 gm in 200 mls @ ud IV .STK-MED ONE Vancomycin HCl 1 gm in 200 mls @ 125 mls/hr 02/12/22 03:15 02/12/22 03:37 Vancomycin 1 Gram/200 Ml Bag IV 03/14/22 03:14 Not Given Q24H WAN Sodium Chloride Confirm 02/12/22 05:20 Sodium Chloride 100ml Mini-Bag Plus Administered 02/12/22 05:21 Dose 100 mls @ ud IV .STK-MED ONE Vancomycin HCl 1.5 gm in 300 mls @ 200 mls/hr 02/12/22 12:00 02/13/22 15:16 Vancomycin 1.5 Gram/300 Ml Bag IV 03/14/22 11:59 Not Given Q8HT [facility] Morphine Sulfate 4 mg 02/12/22 02:12 02/12/22 02:21 Morphine Sulfate 4 Mg/Ml Injection IV 02/12/22 02:13 4 mg STAT ONE Administration Morphine Sulfate Confirm 02/12/22 02:18 Morphine Sulfate 4 Mg/Ml Injection Administered 02/12/22 02:19 Dose 4 mg .ROUTE .STK-MED ONE Non-Formulary Medication 1 each 02/13/22 16:47 02/14/22 20:07 Pharmacy Dosing Request 02/13/22 16:48 Not Given STAT ONE Piperacillin Sod/Tazobactam Sod Confirm 02/12/22 01:08 Piperacillin/Tazobactam Sodium 3.375 Gm Vial Administered 02/12/22 01:09 Dose 3.375 gm IV .STK-MED ONE Piperacillin Sod/Tazobactam Sod Confirm 02/12/22 05:20 Piperacillin/Tazobactam Sodium 3.375 Gm Vial Administered 02/12/22 05:21 Dose 3.375 gm IV .STK-MED ONE Intake & Output (Last 24 hours) 02/13/22 02/14/22 02/15/22 02/16/22 11:59 11:59 11:59 11:59 Intake Total 1540 2480 4344 2664 Output Total 800 Balance 740 2480 4344 2664 Weight 103.2 kg Microbiology Results (Last 24 hours) 02/12/22 01:05 Blood Blood Culture Gram Stain - Final Not Reportable 02/12/22 01:05 Blood Blood Culture - Final NO GROWTH 02/12/22 01:00 Blood Blood Culture Gram Stain - Final Not Reportable 02/12/22 01:00 Blood Blood Culture - Final NO GROWTH 02/12/22 09:00 Foot - Right Wound Culture - Final NO GROWTH Laboratory Results (Last 24 hours) 02/16/22 02/15/22 02/15/22 06:50 21:26 15:52 POC Glucometer 180 H 321 H 247 H 02/15/22 12:10 POC Glucometer 196 H Orders (Last 24 hours) Category Date Time Status POCT GLUCOSE Stat Lab 02/15/22 12:10 Completed POCT GLUCOSE Stat Lab 02/15/22 15:52 Completed POCT GLUCOSE Stat Lab 02/15/22 21:26 Completed POCT GLUCOSE Stat Lab 02/16/22 06:50 Completed Vancomycin, Trough Urgent Lab 02/16/22 09:30 Ordered Therapuetic Drug Level Monitor [Trough Drug Levels] Med 02/16/22 09:30 Once 1 IJ 1XONLY ONE Code(s): L03.119 - CELLULITIS OF UNSPECIFIED PART OF LIMB
[2022-02-16] MEDS ORDERED: TROUGH DRUG LEVELS IJ ONE (09:30)
[2022-02-16] MEDS: Toprol Xl 50 MG PO SCH (09:42)
[2022-02-16] MEDS: ZOCOR 20MG PO SCH (09:43)
[2022-02-16] MEDS: CHLORTHALIDONE PO SCH (09:43)
[2022-02-16] MEDS: Zestril 20 MG PO SCH (09:43)
[2022-02-16] MEDS: Neurontin PO SCH (09:43)
[2022-02-16] MEDS: NORVASC 5 MG PO SCH (09:43)
[2022-02-16] MEDS: VANCOMYCIN 1.5 GRAM/300 ML BAG 1.5 GM/300 ML PIGGYBACK IV SCH ×2 (09:44→21:55)
[2022-02-16] MEDS: HUMALOG SQ PRN ×2 (17:06→21:57)
[2022-02-16] MEDS: OXYCODONE-ACETAMINOPHEN 10-325 PO PRN (21:55)
[2022-02-16] MEDS: NEURONTIN PO SCH (21:56)
[2022-02-17] MEDS: PIPERACILLIN/TAZOBACTAM 3.375 GM in Sodium Chloride 100ML MINI-BAG PLUS 100 ML IV SCH ×3 (00:17→11:52)
[2022-02-17] MEDS: OXYCODONE-ACETAMINOPHEN 10-325 PO PRN ×3 (07:47→16:57)
[2022-02-17] MEDS ORDERED: Lantus Insulin SQ SCH (09:00)
[2022-02-17] MEDS: ZOCOR 20MG PO SCH (09:35)
[2022-02-17] MEDS: NORVASC 5 MG PO SCH (09:35)
[2022-02-17] MEDS: Zestril 20 MG PO SCH (09:35)
[2022-02-17] MEDS: Toprol Xl 50 MG PO SCH (09:35)
[2022-02-17] MEDS: Neurontin PO SCH (09:35)
[2022-02-17] MEDS: CHLORTHALIDONE PO SCH (09:36)
[2022-02-17] MEDS: VANCOMYCIN 1.5 GRAM/300 ML BAG 1.5 GM/300 ML PIGGYBACK IV SCH (09:39)
[2022-02-17] MEDS: HUMALOG SQ PRN ×2 (11:52→16:57)
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
--- NOTE | 2022-02-17 14:54 | XRAY ---
Indication: Cellulitis. Diabetic ulcer. Comparison: None 3 nonweightbearing views right foot demonstrates tiny posterior heel spur. No other bony, articular, or soft tissue abnormalities.
--- NOTE | 2022-02-17 15:05 | XRAY ---
Indication: Cellulitis. Diabetic ulcer. Comparison: None 3 nonweightbearing views left foot demonstrates tiny posterior heel spur. No other bony, articular, or soft tissue abnormalities.
--- NOTE | 2022-02-17 16:26 | PCM.NOTE ---
Date and Time: 02/17/22 1621 Subjective Assessment: Improved pain. Patient seen at bedside Physical Exam - General General Appearance: no apparent distress - Neuro Neurologic: Epicritic and protopathic (absent) - Vascular Peripheral Pulses: Posterior tibialis: 2+, Dorsalis-Pedis: 2+ Capillary Refill Time: < 3 seconds Hair Growth: Symmetrical and Bilateral Varicosities: Positive Edema: Pitting Edema Degree: 2+ Skin: Supple, not atrophic Skin Temperature: Warm to touch - Muscular Muscle Strength: 5/5 on all 4 quadrants Digital Deformity: no digital deformities - Narrative Narrative Physical Exam: Podiatry Physical Exam OBJECTIVE DATA Vital Signs: Vital Signs - 24 hr Temp Pulse Resp BP Pulse Ox 02/17/22 11:57 96.9 F 65 16 110/65 96 02/17/22 08:00 97.6 F 61 16 125/78 97 02/17/22 03:55 97.3 F 74 17 135/75 97 02/17/22 00:00 97.8 F 68 17 144/78 98 02/16/22 19:59 97.5 F 71 17 124/79 99 Pain Assessment - Last Documented Pain Intensity 6 Pain Scale Used 0-10 Pain Scale Intake and Output: Intake & Output 02/15/22 02/16/22 02/17/22 02/18/22 11:59 11:59 11:59 11:59 Intake Total 4344 2844 2554 480 Balance 4344 2844 2554 480 Weight 103.2 kg Lab Results: Lab Results-Last 24 Hours 02/16/22 02/16/22 02/17/22 Range/Units 16:55 21:45 07:54 POC Glucometer 267 H 255 H 182 H (74 to 106) mg/dL 02/17/22 Range/Units 11:02 POC Glucometer 299 H (74 to 106) mg/dL Radiology Exams: Radiology Procedures Category Date Time Status FOOT (MINIMUM 3 VIEWS) Stat Exams 02/17/22 14:40 Completed FOOT (MINIMUM 3 VIEWS) Stat Exams 02/17/22 15:02 Completed Multi-Disciplinary Progress Notes: Multi-Disciplinary Progress Notes 02/17/22 14:45 (created 02/17/22 14:54) Case Management Note by Silke Cornejo HAS ACCEPTED- THEY WILL BE HERE AT 1600 TO GET PATIENT. PATIENT AWARE AND AGREEABLE, NURSE NOTIFIED. Initialized on 02/17/22 14:54 - END OF NOTE 02/17/22 13:06 Case Management Note by Geri Iverson AT [facility] IS STILL WORKING ON PLACEMENT FOR PATIENT,. Initialized on 02/17/22 13:06 - END OF NOTE 02/17/22 12:20 Case Management Note by Geri Iverson S/W SHMUEL- HE REVIEWED CULTURE REPORT. HE PLANS FOR PATIENT TO GO TO MD WITH ORDERS FOR DAPTOMYCIN IV VIA PICC- PHARMACY TO DOSE X 16 DAYS ( TOTAL COURSE TO BE 21 DAYS OF ANTIBIOTICS FROM 02/12). PATIENT WILL ALSO NEED UNNA BOOT DRESSING CHANGES TWICE A WEEK. MORE SPECIFIC DRESSING CHANGE ORDERS TO FOLLOW. INFORMATION SENT TO [facility] Initialized on 02/17/22 12:20 - END OF NOTE Assessment/Plan (1) Epidermolysis bullosa Current Visit: Yes Status: Acute Assessment & Plan: Patient examination evaluation. X-rays reviewed demonstrating no soft tissue emphysema Dressings taken down still some bullous blisters noted to the bilateral lower extremity. Dressing changes will remain unchanged at this time consisting of Betadine paint to the bilateral lower extremity Betadine soaked 4 x 4's in between webspaces and Unna boots to the bilateral lower extremity. Dressing changes will change consisting of Betadine paint twice daily to the toes. Patient will be discharged today to assisted. Orders placed to social work WBing to tolerance. Will follow up outpatient Code(s): Q81.9 - EPIDERMOLYSIS BULLOSA, UNSPECIFIED (2) Venous insufficiency of both lower extremities Current Visit: Yes Status: Acute Code(s): I87.2 - VENOUS INSUFFICIENCY (CHRONIC) (PERIPHERAL) (3) Localized edema Current Visit: Yes Status: Acute Code(s): R60.0 - LOCALIZED EDEMA (4) Cellulitis of foot Current Visit: Yes Status: Acute Code(s): L03.119 - CELLULITIS OF UNSPECIFIED PART OF LIMB (5) Lymphangitis Current Visit: Yes Status: Acute Code(s): I89.1 - LYMPHANGITIS (6) Lactic acidosis Current Visit: Yes Status: Acute Code(s): E87.20 - ACIDOSIS, UNSPECIFIED (7) Hyperglycemia Current Visit: Yes Status: Acute Code(s): R73.9 - HYPERGLYCEMIA, UNSPECIFIED (8) Diabetes mellitus type II, uncontrolled Current Visit: Yes Status: Chronic Qualifiers: Glycemic state: with hyperglycemia Qualified Code(s): E11.65 - Type 2 diabetes mellitus with hyperglycemia Code(s): DMF0563 - (9) Peripheral neuropathy Current Visit: Yes Status: Chronic Qualifiers: Peripheral neuropathy type: polyneuropathy associated with underlying disease Qualified Code(s): G63 - Polyneuropathy in diseases classified elsewhere Code(s): G62.9 - POLYNEUROPATHY, UNSPECIFIED (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
[2022-02-17 16:31] VITALS: BP 99/60; PULSE 63; O2SAT 98
[2022-02-17] MEDS ORDERED: Glucophage 500 MG PO SCH (17:00)
== END 2022-02-17 17:05 | DRG 603 ==
LOC: ED 23:56 → MED SURG 02-12 03:11 → OBSVTOIN 02-12 12:38
PROVIDERS: ADMIT Family Medicine; ATTEND Family Medicine
PROC: 02HV33Z Insertion of Infusion Device into Superior Vena Cava, Percutaneous Approach (ICD-10-PCS; principal; 2022-02-13)
DX: L03.116 Cellulitis of left lower limb (principal); E87.20 Acidosis, unspecified; T88.1XXA Other complications following immunization, not elsewhere classified, initial encounter; L03.115 Cellulitis of right lower limb; E11.65 Type 2 diabetes mellitus with hyperglycemia; G62.9 Polyneuropathy, unspecified; I10 Essential (primary) hypertension; I87.2 Venous insufficiency (chronic) (peripheral); R60.0 Localized edema; Q81.9 Epidermolysis bullosa, unspecified; Z79.899 Other long term (current) drug therapy; Z20.828 Contact with and (suspected) exposure to other viral communicable diseases; Z86.73 Personal history of transient ischemic attack (TIA), and cerebral infarction without residual deficits
CPT/HCPCS: 0241U; 29580; 36000; 36415; 36573; 71045; 73630; 80048; 80053; 80202; 81015; 82947; 83036; 83605; 84145; 85025; 87040; 87070; 87075; 87077; 87186; 90471; 93970; 94760; 96360; 96365; 96367; 96374; 99233; 99284; 90715; J1817; J1885; J2270; J2997; A9270-GY; J3370